=== PATIENT | female | born 1955 | race Two or more races ===

== ENCOUNTER 2025-04-15 22:28 | Inpatient (IN) | payer BC, MEDICARE ==
[~2025-04-15] VITALS: Ht 162.6 cm; Wt 76.7 kg
[~2025-04-15 22:28] MED LIST: CITA10TA8
[2025-04-15 22:29] VITALS: PULSE 70; RESP 25; O2SAT 96
[2025-04-15 22:30] VITALS: PULSE 61; O2SAT 96
--- NOTE | 2025-04-15 22:53 | ED.PDOC ---
SOB-HPI HPI Comments 69-year-old female came to ER via EMS for shortness a breath. Patient has history of hypertension, dyslipidemia and congestive heart failure. Patient has poor compliance to her medications. States she has been short of breath since yesterday that progressively worsened in the past hour. Saturating at 60% at 3 lpm on scene. Patient was placed on CPAP and breathing treatments were given. Chief Complaint: Shortness of Breath Time Seen by MD: 22:52 Primary Care Provider: YELENA Vazquez notes: Nurses Notes Information Source: Patient, Emergency Med Personnel Mode of Arrival: EMS Severity: Moderate Timing: Hours Duration: Since onset Context: With Light Exertion PE Risk Factors: None History of: CHF Prehospital treatment: Breathing Tx, C-Pap, Oxygen Modifying Factors: Exertion Quality: Aching, Tightness Radiation: No Radiation Location: Chest (R), Chest (L) If cough with SOB: Non-Productive Past Medical History PAST MEDICAL HISTORY: CHF, High Lipids, HTN Surgical History: Denies all surgeries ABSTRACT WRITER History: No Pertinent ABSTRACT WRITER History Family History Family History: Reviewed,noncontributory to illness Social History Smoker: Cigarettes Alcohol: Denies ETOH Use Drugs: Denies Drug Use Lives In: Home Constitutional: denies: chills, diaphoresis, fatigue, fever, malaise, sweats, weakness, others EENTM: denies: blurred vision, double vision, ear bleeding, ear discharge, ear drainage, ear pain, ear ringing, eye pain, eye redness, hearing loss, mouth pain, mouth swelling, nasal discharge, nose bleeding, nose congestion, nose pain, photophobia, tearing, throat pain, throat swelling, voice changes, others Respiratory: reports: SOB at rest, shortness of breath, wheezing; denies: cough, hemoptysis, orthopnea, SOB with excertion, stridor, others Cardiovascular: denies: chest pain, dizzy spells, diaphoresis, Dyspnea on exertion, edema, irregular heart beat, left arm pain, lightheadedness, palpitations, PND, syncope, others Gastrointestinal: denies: abdomen distended, abdominal pain, blood streaked bowels, constipated, diarrhea, dysphagia, difficulty swallowing, hematemesis, melena, nausea, poor appetite, poor fluid intake, rectal bleeding, rectal pain, vomiting, others Genitourinary: denies: abnormal vagina bleeding, burning, dyspareunia, dysuria, flank pain, frequency, hematuria, incontinence, pain, , vagina discharge, urgency, others Neurological: denies: dizziness, fainting, headache, left sided numbness, left sided weakness, numbness, paresthesia, pre-existing deficit, right sided numbness, right sided weakness, seizure, speech problems, tingling, tremors, weakness, others Musculoskeletal: denies: back pain, gout, joint pain, joint swelling, muscle pain, muscle stiffness, neck pain, others Integumetry: denies: bruises, change in color, change in hair/nails, dryness, laceration, lesions, lumps, rash, wounds, others Allergic/Immunocompromised: denies: Difficulty Healing, Frequent Infections, Hives, Itching, others Hematologic/Lymphatic: denies: anemia, blood clots, easy bleeding, easy bruising, swollen glands, others Endocrine: denies: excessive hunger, excessive sweating, excessive thirst, excessive urination, flushing, intolerance to cold, intolerance to heat, unexplained weight gain, unexplained weight loss, others Psychiatric: denies: anxiety, bipolar disorder, depression, hopeless, panic disorder, schizophrenia, sleepless, suicidal, others Physical Exam General Appearance: No Apparent Distress, Normal HEENT: Normal ENT Inspection, Pharynx Normal, TMs Normal Neck: Full Range of Motion, Non-Tender, Normal, Normal Inspection Respiratory: Chest Non-Tender, Lungs Clear, No Accessory Muscle Use, No Respiratory Distress, Normal Breath Sounds Cardiovascular: No Edema, No JVD, No Murmur, No Gallop, Normal Peripheral Pulses, Regular Rate/Rhythm Breast Exam: Deferred Gastrointestinal: No Organomegaly, Non Tender, No Pulsatile Mass, Normal Bowel Sounds, Soft Genitalia: Deferred Pelvic: Deferred Rectal: Deferred Extremities: No calf tenderness, Normal capillary refill, Normal inspection, Normal range of motion, Non-tender, No pedal edema Musculoskeletal : Apperance: Normal Neurologic: Alert, laboratory machinist II-XII nml as Tested, No Motor Deficits, Normal Affect, Normal Mood, No Sensory Deficits Cerebellar Function: Normal Reflexes: Normal Skin: Dry, Normal Color, Warm Lymphatic: No Adenopathy Was a procedure done? Was a procedure done?: No Differential Dx Differential Diagnosis: Bronchitis, CHF, COPD, Pneumonia, Respiratory Distress, URI X-Ray, Labs, Meds, VS Vital Signs Date Time Temp Pulse Resp B/P (MAP) Pulse Ox O2 Delivery O2 Flow Rate FiO2 04/16/25 00:41 118/63 04/16/25 00:18 74 103/45 98 Facial BiPAP Mask 45 04/16/25 00:00 98.0 75 25 103/45 (64) 100 98.0 04/16/25 00:00 57 04/15/25 23:15 96.8 61 26 124/82 96 45 96.8 04/15/25 23:00 97.7 62 24 124/79 (94) 100 97.7 04/15/25 22:38 96.8 59 25 120/74 (89) 91 96.8 04/15/25 22:32 62 04/15/25 22:30 61 96 Facial BiPAP Mask 45 04/15/25 22:29 96.8 61 22 124/82 (96) 95 96.8 04/15/25 22:29 70 25 96 Bi-Pap+ 45 45 Lab Test 04/16/25 00:46 04/16/25 00:03 04/15/25 23:49 04/15/25 23:38 Range/Units POC Glucose 136 H 89 31 *L 70-106 mg/dl Blood Gas Specimen Type Arterial Blood Gas Sample Site Left radial Blood Gas Patient Temperature 37.0 Arterial Blood Date Drawn [id number] Arterial Blood pH 7.423 7.350-7.450 Arterial Blood Partial Pressure CO2 22.1 L 32.0-45.0 mmHg Arterial Blood Partial Pressure O2 104.8 83.0-108.0 mmHg Arterial Blood HCO3 14.1 L 21.0-28.0 mmol/L Arterial Blood Oxygen Saturation 97.4 94.0-98.0 % Arterial Blood Base Excess -8.2 L -2.0-3.0 mmol/L Arterial Blood Oxyhemoglobin 96.0 94.0-98.0 % Arterial Blood Carboxyhemoglobin 0.8 0.5-1.5 % Arterial Blood Methemoglobin 0.6 0.0-1.5 % Gianni Test Yes Blood Gas Total Hemoglobin 13.50 12.0-16.0 g/dL Blood Gas Modality Mask - bipap FiO2 % 45.0 Blood Gas EPAP 5 Blood Gas IPAP 12 Test 04/15/25 23:07 Range/Units White Blood Count 6.9 4.4-10.8 10^3/uL Red Blood Count 4.03 4.0-5.20 10^6/uL Hemoglobin 13.4 12.2-16.2 g/dL Hematocrit 41.2 36.0-46.0 % Mean Corpuscular Volume 102.2 H 80.0-100.0 fL Mean Corpuscular Hemoglobin 33.2 H 28.0-32.0 pg Mean Corpuscular Hemoglobin Concent 32.5 32.0-36.0 g/dL Red Cell Distribution Width 19.0 H 11.8-14.3 % Platelet Count 161 140-450 10^3/uL Mean Platelet Volume 9.2 6.9-10.8 fL Neutrophils (%) (Auto) 71.8 37.0-80.0 % Lymphocytes (%) (Auto) 19.4 10.0-50.0 % Monocytes (%) (Auto) 8.1 0.0-12.0 % Eosinophils (%) (Auto) 0.2 0.0-7.0 % Basophils (%) (Auto) 0.5 0.0-2.0 % Neutrophils # (Auto) 5.0 1.6-8.6 10 ^3/uL Lymphocytes # (Auto) 1.4 0.4-5.4 10 ^3/uL Monocytes # (Auto) 0.6 0-1.3 10 ^3/uL Eosinophils # (Auto) 0 0-0.8 10 ^3/uL Basophils # (Auto) 0 0-0.2 10 ^3/uL Nucleated Red Blood Cells 0.7 % Sodium Level 137 136-145 mmol/L Potassium Level 6.3 *H 3.5-5.1 mmol/L Chloride Level 104 98-107 mmol/L Carbon Dioxide Level 12 L 20-31 mmol/L Anion Gap 21 H 5-15 Blood Urea Nitrogen 25 H 9-23 mg/dL Creatinine 1.50 H 0.550-1.02 mg/dL Glomerular Filtration Rate Calc 37 >90 mL/min BUN/Creatinine Ratio 16.7 10.0-20.0 Serum Glucose 44 *L 74-106 mg/dL Calcium Level 10.7 H 8.7-10.4 mg/dL Troponin I High Sensitivity 26 </=34 ng/L B-Type Natriuretic Peptide 1636.26 0-100 pg/mL Current Medications Medications (Trade) Dose Ordered Sig/Fuad Route Start Time Stop Time Status Last Admin Dextrose 50 ml ONCE ONCE IV 04/16/25 00:00 04/16/25 00:01 DC 04/15/25 23:58 Calcium Gluconate/ Sodium Chloride 50 ml @ 100 mls/hr Q30M IV 04/16/25 00:30 04/16/25 01:29 04/16/25 00:40 Dextrose 50 ml ONCE ONCE IV 04/16/25 00:30 04/16/25 00:31 DC 04/16/25 00:41 Insulin Human Regular (InsuLIN R) 5 units ONCE ONCE IV 04/16/25 00:30 04/16/25 00:31 DC 04/16/25 00:47 Sodium Bicarbonate 100 ml ONCE ONCE IV 04/16/25 00:30 04/16/25 00:31 DC 04/16/25 00:43 Furosemide (Lasix Injection) 40 mg ONCE ONCE IV 04/16/25 00:30 04/16/25 00:31 DC 04/16/25 00:41 CHEST RADIOGRAPH Indication: sob Technique: Single frontal view of the chest was obtained COMPARISON: None FINDINGS: Lines and Tubes: None Lungs: Clear Pleura: No effusion. No pneumothorax. Cardiomediastinal contours: Moderate cardiomegaly. IMPRESSION: Moderate cardiomegaly. Time of 1ST Reevaluation: 22:48 Reevaluation 1ST: Unchanged Patient Education/Counseling: Diagnosis, Treatment Family Education/Counseling: No Family Present Departure 1 Departure Time of Disposition: 01:02 (Patient presented with shortness of breath that was concerning for possible STEMI, ACS, PE, Pneumonia, Muscle Strain, COPD, Dissection, Acute on Chronic systolic and Diastolic dysfunction. Data: 1. I ordered and reviewed the result of at least 3 labs including a CBC, BMP, and Troponin. 2. I independently interpreted the following tests: EKG which shows sinus arrhthmia and Chest X-ray which shows cardiomegaly.Risk:This patient has a high risk of morbidity due to further diagnostic testing or treatment and may suffer from an acute cardiac or respiratory disorder but is most consitent with an acute chf exacerbation. Patient should be admitted for further workup and possible expert consultation. ) Impression: Primary Impression: Acute respiratory failure Qualified Codes: J96.01 - Acute respiratory failure with hypoxia Additional Impressions: Acute on chronic heart failure with reduced ejection fraction (HFrEF, <= 40%) and combined systolic and diastolic dysfunction Hyperkalemia Disposition: 09 ADMITTED INPATIENT Admit to: [facility] Condition: Guarded Critical Care Note Critical Care Time?: Yes (35 min-critical care time only) Critical care comment: Shortness a breath Authorized and Performed by: Irish Eng MD Total critical care time: Approximately 42 minutes Due to a high probability of clinically significant, life threatening deterioration, the patient required my highest level of preparedness to intervene emergently and I personally spent this critical care time directly and personally managing the patient. This critical care time included obtaining a history; examining the patient; pulse oximetry; ordering and review of studies; arranging urgent treatment with development of a management plan; evaluation of patient's response to treatment; frequent reassessment; and, discussions with other providers. This critical care time was performed to assess and manage the high probability of imminent, life-threatening deterioration that could result in multi-organ failure. It was exclusive of separately billable procedures and treating other patients and teaching time. Please see my other sections and the rest of the note for further information on patient assessment and treatment. Stability Stability form required: No Heart Score Heart Score: Heart Score Response (Comments) Value History Moderate Suspicious 1 EKG Repolarization Disturb 1 Age >65 2 Risk Factors >3 or Hx ASHD 2 Troponin Normal limit 0 Total 6 I personally scribed for IRISH ENG MD ([email or web address]) on 04/15/25 at 22:53. Electronically submitted by Gonzalo Pineda ([employer]). I personally scribed for IRISH ENG MD ([email or web address]) on 04/16/25 at 00:03. Electronically submitted by Gonzalo Pineda ([employer]). IRISH ENG MD April 15, 2025 22:53
[2025-04-15 23:15] VITALS: BP 124/82; PULSE 61; RESP 26; TEMP 96.8; O2SAT 96
[2025-04-15 23:21] LABS: Basophils # (auto) 0 10 ^3/uL (0-0.2); Eosinophils # (auto) 0 10 ^3/uL (0-0.8); Hemoglobin 13.4 g/dL (12.2-16.2); Monocytes # (auto) 0.6 10 ^3/uL (0-1.3)
[2025-04-15 23:23] LABS: Basophils % (auto) 0.5 % (0.0-2.0); Eosinophils % (auto) 0.2 % (0.0-7.0); Hematocrit 41.2 % (36.0-46.0); Lymphocytes # (auto) 1.4 10 ^3/uL (0.4-5.4); Lymphocytes % (auto) 19.4 % (10.0-50.0); Mean Corpuscular Hemoglobin 33.2 pg (28.0-32.0); Mean Corpuscular Hgb Conc. 32.5 g/dL (32.0-36.0); Mean Corpuscular Volume 102.2 fL (80.0-100.0); Monocytes % (auto) 8.1 % (0.0-12.0); Neutrophils % (auto) 71.8 % (37.0-80.0); Nucleated Red Blood Cells % 0.7 %; Platelet Count (auto) 161 10^3/uL (140-450); Red Blood Cells 4.03 10^6/uL (4.0-5.20); White Blood Cell 6.9 10^3/uL (4.4-10.8)
--- NOTE | 2025-04-15 23:23 | DVH ---
CHEST RADIOGRAPH Indication: sob Technique: Single frontal view of the chest was obtained COMPARISON: None FINDINGS: Lines and Tubes: None Lungs: Clear Pleura: No effusion. No pneumothorax. Cardiomediastinal contours: Moderate cardiomegaly. IMPRESSION: Moderate cardiomegaly.
[2025-04-15 23:33] LABS: Chloride 104 mmol/L (98-107)
[2025-04-15 23:34] LABS: Anion Gap 21 (5-15); Sodium 137 mmol/L (136-145)
[2025-04-15 23:40] LABS: BUN/Creatinine Ratio 16.7 (10.0-20.0); Blood Urea Nitrogen 25 mg/dL (9-23); Calcium 10.7 mg/dL (8.7-10.4); Carbon Dioxide 12 mmol/L (20-31)
[2025-04-15 23:46] LABS: Base Excess -8.2 mmol/L (-2.0-3.0)
[2025-04-15 23:46] LABS: Glucose 44 mg/dL (74-106); Potassium 6.3 mmol/L (3.5-5.1)
[2025-04-15] MEDS: DEXTROSE (50%) 50ML SYRG IV ONE (23:58)
[2025-04-15] MEDS: DEXTROSE 50% SYRINGE 50 ML IV ONE (23:58)
[2025-04-16] VITALS (10 sets, daily range): BP systolic 94–119; BP diastolic 45–66; PULSE 62–86; RESP 17–20; TEMP 97.6–97.7; O2SAT 96–99
[2025-04-16] MEDS: CALCIUM GLUC 1,000mg/50ml-NS 50 ML IV SCH (00:40)
[2025-04-16] MEDS: FUROSEMIDE 40 MG/4 ML VIAL IV ONE (00:41)
[2025-04-16] MEDS: DEXTROSE (50%) 50ML SYRG IV ONE (00:41)
[2025-04-16] MEDS: SODIUM BICARB 8.4% 50Meq/50ml SYR Vial IV ONE (00:43)
[2025-04-16] MEDS: InsuLIN REG 1unit/0.01ml Soln (100units/ml) IV ONE (00:47)
[2025-04-16] MEDS ORDERED: ACETAMINOPHEN 325 MG TAB PO PRN (01:30)
[2025-04-16] MEDS ORDERED: DEXTROSE (50%) 50ML SYRG IV PRN (01:30)
[2025-04-16] MEDS ORDERED: ONDANSETRON HCL 4 MG/2 ML VIAL IV PRN (01:30)
--- NOTE | 2025-04-16 01:52 | DVHHP2 ---
History of Present Illness Reason for Visit: Acute respiratory failure with hypoxia History of Present Illness The patient is a 69-year-old female with past medical history of hyperlipidemia, hypertension, and CHF who presented to [facility] ED with complaint of shortness of breaths. Patient reports she has been experiencing increased shortness of breaths, increased work of breathing, desaturating at 60%, getting worse that prompted this visit. Patient was seen and evaluated in the ED, laboratory data shows WBC 6.9, platelets 161, sodium 137, potassium 6.3, BUN 25, creatinine 1.50, glucose 44, anion gap 21, calcium 10.7, troponin 26, BNP 1636.26 blood pressure 118/63, heart rate 74, temperature 98.0 F, O2 saturation 98% on BiPAP. Chest x-ray revealing mild cardiomegaly. Patient was started on IV Lasix, given hyperkalemia protocol, please see medication orders section in the computer. On my assessment, patient denies chest pain, no headache, no dizziness, no diaphoresis, currently on BiPAP, no nausea, no vomiting, no fever, no chills. Patient was admitted for further evaluation and medical management. Past Medical History CHF, High Lipids, HTN Past Surgical History Denies all surgeries Family History Reviewed, noncontributory to the management of this case. Past Social History The patient lives at home, smokes cigarettes, denies alcohol or illicit drugs abuse. Review of Systems Constitutional: Yes: Weakness; No: Fever, Chills, Sweats, Malaise, Other Eyes: No: Pain, Vision change, Conjunctivae inflammation, Eyelid inflammation, Other, Redness ENT: No: Ear pain, Ear discharge, Nose pain, Nose discharge, Nose congestion, Mouth pain, Mouth swelling, Throat pain, Throat swelling, Other Respiratory: Shortness of breath, Wheezing, Other (SOB at rest); No: Cough, Dry, SOB with excertion, Hemoptysis, Pleuritic Pain, Sputum, Wheezing Cardiovascular: No: Chest Pain, Palpitations, Orthopnea, Paroxysmal Noc. Dyspnea, Edema, Lt Headedness, Other Gastrointestinal: No: Nausea, Vomiting, Abdominal Pain, Diarrhea, Constipation, Melena, Hematochezia, Other Genitourinary: No Dysuria, No Frequency, No Incontinence, No Hematuria, No Retention, No Other Musculoskeletal: No: other, neck pain, shoulder pain, arm pain, back pain, hand pain, leg pain, foot pain Skin: No: Rash, Lesions, Jaundice, Bruising, Other Neurological: No: Weakness, Numbness, Incoordination, Change in speech, Confusion, Seizures, Other Allergies: Coded Allergies: NO KNOWN ALLERGIES (Unverified , 11/16/10) Medications Current Medications Medications Dose Ordered Sig/Fuad Route Start Time Stop Time Status Last Admin Dose Admin Furosemide 40 mg DAILY IV 04/16/25 10:00 Carvedilol 3.125 mg Q12HR PO 04/16/25 10:00 Aspirin 81 mg DAILY PO 04/16/25 10:00 Diagnostic Test (Pha) 1 strip IQ4HR 04/16/25 04:00 Insulin Human Regular IQ4HR SC 04/16/25 04:00 Dextrose 50 ml UD PRN IV 04/16/25 01:30 Sodium Chloride 10 ml Q8HR IV 04/16/25 06:00 Acetaminophen/ Hydrocodone Bitart 1 tab Q4HP PRN PO 04/16/25 01:30 Ondansetron HCl 4 mg Q4HP PRN IV 04/16/25 01:30 Docusate Sodium 100 mg BIDPRN PRN PO 04/16/25 01:30 Acetaminophen 650 mg Q6HP PRN PO 04/16/25 01:30 Exam Vital Signs Vital Signs Date Time Temp Pulse Resp B/P (MAP) Pulse Ox O2 Delivery O2 Flow Rate FiO2 04/16/25 00:41 118/63 04/16/25 00:18 74 98 Facial BiPAP Mask 45 04/16/25 00:00 98.0 25 98.0 General Appearance: Alert, Oriented X3, Cooperative, No acute distress HEENT: Atraumatic, PERRLA, EOMI, Mucous membr. moist/pink Respiratory: Other (On BiPAP) Cardiovascular: Regular rate, Normal S1, Normal S2, No murmurs Abdominal: Normal bowel sounds, Soft, No tenderness, No hepatospenomegaly, No masses Extremities: No clubbing, No cyanosis, No edema, Normal pulses, No tenderness/swelling Skin: No rashes, No breakdown, No significant lesion Neuro: Normal speech, Normal tone, Sensation intact, Cranial nerves 3-12 NL, Reflexes 2+, Other (Generalized weakness) Psych/Mental Status: Mental status NL, Mood NL Labs/Xrays Labs Test 04/16/25 00:46 04/15/25 23:38 04/15/25 23:07 Range/Units POC Glucose 136 H 70-106 mg/dl Blood Gas Specimen Type Arterial Blood Gas Sample Site Left radial Blood Gas Patient Temperature 37.0 Arterial Blood Date Drawn [id number] Arterial Blood pH 7.423 7.350-7.450 Arterial Blood Partial Pressure CO2 22.1 L 32.0-45.0 mmHg Arterial Blood Partial Pressure O2 104.8 83.0-108.0 mmHg Arterial Blood HCO3 14.1 L 21.0-28.0 mmol/L Arterial Blood Oxygen Saturation 97.4 94.0-98.0 % Arterial Blood Base Excess -8.2 L -2.0-3.0 mmol/L Arterial Blood Oxyhemoglobin 96.0 94.0-98.0 % Arterial Blood Carboxyhemoglobin 0.8 0.5-1.5 % Arterial Blood Methemoglobin 0.6 0.0-1.5 % Gianni Test Yes Blood Gas Total Hemoglobin 13.50 12.0-16.0 g/dL Blood Gas Modality Mask - bipap FiO2 % 45.0 Blood Gas EPAP 5 Blood Gas IPAP 12 White Blood Count 6.9 4.4-10.8 10^3/uL Red Blood Count 4.03 4.0-5.20 10^6/uL Hemoglobin 13.4 12.2-16.2 g/dL Hematocrit 41.2 36.0-46.0 % Mean Corpuscular Volume 102.2 H 80.0-100.0 fL Mean Corpuscular Hemoglobin 33.2 H 28.0-32.0 pg Mean Corpuscular Hemoglobin Concent 32.5 32.0-36.0 g/dL Red Cell Distribution Width 19.0 H 11.8-14.3 % Platelet Count 161 140-450 10^3/uL Mean Platelet Volume 9.2 6.9-10.8 fL Neutrophils (%) (Auto) 71.8 37.0-80.0 % Lymphocytes (%) (Auto) 19.4 10.0-50.0 % Monocytes (%) (Auto) 8.1 0.0-12.0 % Eosinophils (%) (Auto) 0.2 0.0-7.0 % Basophils (%) (Auto) 0.5 0.0-2.0 % Neutrophils # (Auto) 5.0 1.6-8.6 10 ^3/uL Lymphocytes # (Auto) 1.4 0.4-5.4 10 ^3/uL Monocytes # (Auto) 0.6 0-1.3 10 ^3/uL Eosinophils # (Auto) 0 0-0.8 10 ^3/uL Basophils # (Auto) 0 0-0.2 10 ^3/uL Nucleated Red Blood Cells 0.7 % Sodium Level 137 136-145 mmol/L Potassium Level 6.3 *H 3.5-5.1 mmol/L Chloride Level 104 98-107 mmol/L Carbon Dioxide Level 12 L 20-31 mmol/L Anion Gap 21 H 5-15 Blood Urea Nitrogen 25 H 9-23 mg/dL Creatinine 1.50 H 0.550-1.02 mg/dL Glomerular Filtration Rate Calc 37 >90 mL/min BUN/Creatinine Ratio 16.7 10.0-20.0 Serum Glucose 44 *L 74-106 mg/dL Calcium Level 10.7 H 8.7-10.4 mg/dL Troponin I High Sensitivity 26 </=34 ng/L B-Type Natriuretic Peptide 1636.26 0-100 pg/mL PATIENT: NEELAM GARCIA ACCT: [id number] UNIT: [id number] : 1955 LOC: ER ROOM / BED: / AGE / SEX: 69 / F ADM STATUS: REG ER SERVICE 2248 ORDERING PHYSICIAN: IRISH ENG MD PROCEDURE(s): CXRP - CHEST PORTABLE REASON: sob ORDER NUMBER(s): [id number], ACCESSION NUMBER(s): [id number] CHEST RADIOGRAPH Indication: sob Technique: Single frontal view of the chest was obtained COMPARISON: None FINDINGS: Lines and Tubes: None Lungs: Clear Pleura: No effusion. No pneumothorax. Cardiomediastinal contours: Moderate cardiomegaly. IMPRESSION: Moderate cardiomegaly. Assessment/Plan Assessment/Plan Acute respiratory failure Acute respiratory failure with hypoxia Hyperkalemia Acute on chronic heart failure with reduced ejection fraction (HFrEF, <= 40%) and combined systolic and diastolic dysfunction Plan 1. Admit to telemetry unit 2. Breathing treatment 3. Pain control management 4. Management of fluids and electrolytes 5. Consultation for Cardiology 6. Diagnostic tests chest x-ray 7. DVT prophylaxis-on aspirin 8. Repeat labs CBC, CMP in a.m. 9. Continue with current medical management 10. Treatment plan discussed with patient and RN. Patient verbalized understanding. Plan discussed with: Patient, Other (RN) My Orders Orders - MAAME DARBY DNP Procedure Category Date Status Time Complete Blood Count LAB 04/16/25 Logged 04:00 Comprehensive LAB 04/16/25 Logged Metabolic Panel 04:00 Furosemide Injection PHA 04/16/25 In Process (Lasix Injection) 10:00 Carvedilol Tablet PHA 04/16/25 In Process (Coreg Tablet) 10:00 Aspirin Tablet PHA 04/16/25 In Process 10:00 Glucose Blood PHA 04/16/25 In Process (Accu-Chek Comfort 04:00 Insulin R (Human) PHA 04/16/25 In Process (Insulin R) 04:00 Dextrose 50% Syringe PHA 04/16/25 In Process 01:30 Allergies SERVANDO 04/16/25 In Process 01:17 Code Status CODE 04/16/25 Transmitted 01:17 Sodium Chloride Lock PHA 04/16/25 In Process (Saline Lock Ns) 06:00 Oxygen Per Hour RT 04/16/25 Transmitted 01:17 Hydrocodone-Acet PHA 04/16/25 In Process 5325mg Tab ([place] 01:30 Ondansetron Hcl PHA 04/16/25 In Process (Zofran) 01:30 Docusate Sodium PHA 04/16/25 In Process Capsule (Colace 01:30 Fall Risk Precautions SERVANDO 04/16/[address] 01:17 Complete Blood Count LAB 04/17/25 Verified 04:00 Comprehensive LAB 04/17/25 Verified Metabolic Panel 04:00 Condition: Serious SERVANDO 04/16/25 In Process 01:17 Acetaminophen Tablet PHA 04/16/25 In Process (Tylenol Tablet) 01:30 Maintain Bed Rest SERVANDO 04/16/25 In Process 01:17 Sequential SERVANDO 04/16/25 In Process Compression Device Consistent DIET 04/16/25 Transmitted Carb(Ccho)Diabetes Breakfast * Cardiology Consult CONS 04/16/25 Transmitted 01:17 Echo 2d Mode Cardiac US 04/16/25 Logged DOP 01:32 Admit ADMIT 04/16/25 Transmitted 01:50 Nitroglycerin PHA 04/16/25 Transmitted Sublingual (Ntrostat 02:00 Morphine Sulfate PHA 04/16/25 Transmitted Injection 02:00 Stat Ekg For Chest [facility] 04/16/25 Transmitted Pain 01:50 Notify Md Of Changes [facility] 04/16/25 Transmitted From Base 01:50 Regional Clinical Director For [facility] 04/16/25 Transmitted 24 Hours 01:50 Emergency Dysrhythmia [facility] 04/16/25 Transmitted Protocol 01:50 Rhythm Strips Once [facility] 04/16/25 Transmitted Every Shift 01:50 Oxygen By Nasal RT 04/16/25 Transmitted Cannula 01:50 Problem List: (1) Acute respiratory failure with hypoxia (2) Hyperkalemia (3) Acute respiratory failure (4) Acute on chronic heart failure with reduced ejection fraction (HFrEF, <= 40%) and combined systolic and diastolic dysfunction Date of Service: April 16, 2025 Billing Provider: MAAME DARBY DNP Common Visit Codes: 72625-[id number] INP/OBS CARE (HIGH) MAAME DARBY DNP April 16, 2025 01:51
[2025-04-16] MEDS ORDERED: MORPHINE SULFATE INJ 2 MG/ml SYRG IV PRN (02:00)
[2025-04-16] MEDS ORDERED: NITROGLYCERIN 0.4 MG SL TAB SL PRN (02:00)
[2025-04-16 02:20] LABS: Urine Bacteria None Seen /hpf (None Seen)
[2025-04-16 02:33] LABS: Urine Amorphous Crystal FEW /hpf (None Seen); Urine Blood Negative /uL (Negative); Urine Clarity Clear (Clear); Urine Color Light-Yellow (Yellow); Urine Hyaline Cast FEW /lpf (0 - 2); Urine Protein, UAD Negative (Negative); Urine Specific Gravity 1.007 (1.001-1.035); Urine Squamous Epithelial Cell FEW /hpf (<5); Urine Urobilinogen Normal (Negative); Urine WBC 1 /HPF (0-5)
[2025-04-16 02:42] LABS: Chloride 104 mmol/L (98-107); Potassium 5.1 mmol/L (3.5-5.1); Sodium 139 mmol/L (136-145)
[2025-04-16 02:43] LABS: Anion Gap 18 (5-15); Calcium 10.1 mg/dL (8.7-10.4)
[2025-04-16 02:44] LABS: Carbon Dioxide 17 mmol/L (20-31)
[2025-04-16 02:48] LABS: BUN/Creatinine Ratio 18.1 (10.0-20.0)
[2025-04-16 02:49] LABS: Blood Urea Nitrogen 28 mg/dL (9-23); Glucose 158 mg/dL (74-106)
[2025-04-16 02:50] LABS: Phosphorus 4.9 mg/dL (2.4-5.1)
[2025-04-16] MEDS: ACCU-CHEK COMFORT CURVE STRIP VI SCH (04:00)
[2025-04-16] MEDS: InsuLIN REG 1unit/0.01ml Soln (100units/ml) SC SCH (04:00)
--- NOTE | 2025-04-16 05:48 | ECG ---
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 Electronically Signed On 04-18-2025 22:15:46 PDT by Curt Molina Please click the below link to view image of tracing.
[2025-04-16] MEDS: SODIUM CHLOR 0.9% PF (SALINE LOCK) 10ML VIAL/SYR IV SCH (05:58)
[2025-04-16 07:00] LABS: Basophils # (auto) 0 10 ^3/uL (0-0.2); Basophils % (auto) 0.5 % (0.0-2.0); Eosinophils # (auto) 0 10 ^3/uL (0-0.8); Eosinophils % (auto) 0.1 % (0.0-7.0); Hematocrit 35.6 % (36.0-46.0); Hemoglobin 11.9 g/dL (12.2-16.2); Lymphocytes # (auto) 1.1 10 ^3/uL (0.4-5.4); Lymphocytes % (auto) 16.4 % (10.0-50.0); Mean Corpuscular Hemoglobin 33.3 pg (28.0-32.0); Mean Corpuscular Hgb Conc. 33.3 g/dL (32.0-36.0); Mean Corpuscular Volume 100.2 fL (80.0-100.0); Monocytes # (auto) 0.5 10 ^3/uL (0-1.3); Monocytes % (auto) 8.1 % (0.0-12.0); Neutrophils # (auto) 4.9 10 ^3/uL (1.6-8.6); Neutrophils % (auto) 74.9 % (37.0-80.0); Nucleated Red Blood Cells % 0.4 %; Platelet Count (auto) 141 10^3/uL (140-450); Red Blood Cells 3.56 10^6/uL (4.0-5.20); Red Cell Distribution Width 17.9 % (11.8-14.3); White Blood Cell 6.5 10^3/uL (4.4-10.8)
[2025-04-16 07:03] LABS: Anion Gap 12 (5-15); BUN/Creatinine Ratio 16.1 (10.0-20.0); Potassium 4.7 mmol/L (3.5-5.1); Sodium 139 mmol/L (136-145); Total Protein 6.4 g/dL (5.7-8.2)
[2025-04-16 07:05] LABS: Alanine Aminotransferase 968 U/L (7-40); Alkaline Phosphatase 120 U/L (46-116); Bilirubin, Total 3.1 mg/dL (0.2-1.0); Blood Urea Nitrogen 25 mg/dL (9-23); Carbon Dioxide 19 mmol/L (20-31); Chloride 108 mmol/L (98-107); Glucose 123 mg/dL (74-106)
[2025-04-16 07:22] LABS: Aspartate Aminotransferase 2286 U/L (13-40)
--- NOTE | 2025-04-16 10:02 | DVHINCON2 ---
[facility]AM[facility] LOCKWOOD [facility] 04/16/25 1002: Date Seen: April 16, 2025 Referring Physician SHADI Fuentes Reason for Consultation CHF exacerbation History of Present Illness This is a 69-year-old female patient who presents to the emergency room with chief complaint of worsening shortness of breath for two days prior to emergency room arrival. Cardiology has been consulted at this time for CHF exacerbation. Initial twelve electrocardiogram reveals normal sinus rhythm with diffuse nonspecific ST segment depression and S1Q3T3 pattern. Initial troponin level of 26ng/L with significant up-trend and current peak level of 661ng/L. The patient denies any chest pain. Initial BNP level of 1636.26pg/mL. Significant past medical history includes congestive heart failure, hypertension, dyslipidemia, COPD, obesity, and tobacco use. The patient reports that she recently moved to this area from [place] approximately three weeks ago. 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 The patient admits to medication noncompliance, stating that she has not taken her heart failure medications including Lasix for the last couple of days. Of note, the patient's toxicology is positive for amphetamine use for which the patient adamantly denies. Past Medical History Past medical history reviewed. No other significant than mentioned above. Past Surgical History Tonsillectomy Family History Family history reviewed. Social History Patient has a five pack-year history, states she now smokes approximately one cigarette per week Denies any illicit drug use Denies any alcohol use Allergies: Coded Allergies: NO KNOWN ALLERGIES (Unverified , 11/16/10) Home Meds Discontinued Reported Medications Citalopram Hydrobromide (Celexa) 10 Mg Tab 11/16/10 Home Meds Home medications reviewed. Current Medications Current Medications Medications (Trade) Dose Ordered Sig/Fuad Route PRN Reason Start Time Stop Time Status Last Admin Calcium Gluconate/ Sodium Chloride 50 ml @ 100 mls/hr Q30M IV 04/16/25 00:30 04/16/25 01:29 DC 04/16/25 01:07 Furosemide (Lasix Injection) 40 mg DAILY IV 04/16/25 10:00 Carvedilol (Coreg Tablet) 3.125 mg Q12HR PO 04/16/25 10:00 Aspirin 81 mg DAILY PO 04/16/25 10:00 Diagnostic Test (Pha) (Accu-Chek Comfort Curve T) 1 strip IQ4HR 04/16/25 04:00 04/16/25 08:53 Insulin Human Regular (InsuLIN R) IQ4HR SC 04/16/25 04:00 Dextrose 50 ml UD PRN IV Blood Sugar LESS THAN 60 04/16/25 01:30 Sodium Chloride (Saline Lock Ns) 10 ml Q8HR IV 04/16/25 06:00 04/16/25 05:58 Acetaminophen/ Hydrocodone Bitart ([place] 5/325MG Tab) 1 tab Q4HP PRN PO MODERATE PAIN (4-6 PAIN SCALE) 04/16/25 01:30 Ondansetron HCl (Zofran) 4 mg Q4HP PRN IV NAUSEA / VOMITING 04/16/25 01:30 Docusate Sodium (Colace Capsule) 100 mg BIDPRN PRN PO FOR CONSTIPATION 04/16/25 01:30 Acetaminophen (Tylenol Tablet) 650 mg Q6HP PRN PO PAIN SCALE 1-3 OR TEMP>100.4 04/16/25 01:30 Nitroglycerin (Ntrostat Sublingual) 0.4 mg Q5MINP PRN SL FOR CHEST PAIN 04/16/25 02:00 Morphine Sulfate 2 mg Q30M PRN IV FOR CHEST PAIN 04/16/25 02:00 Atorvastatin Calcium (Lipitor) 40 mg HS PO 04/16/25 22:00 UNV Review of Systems Constitutional: No symptom reported Ears, Nose, & Throat: No symptom reported Eyes: No symptom reported Neurological: No symptoms reported Pulmonary/Respiratory: Shortness of breath Cardiovascular: No symptom reported Gastrointestinal: No symptom reported Genitourinary: No symptom reported Musculoskeletal: No symptom reported Skin: No symptom reported Psychiatric: No symptom reported Endocrine: No symptom reported Hematologic/Lymphatic: No symptom reported Vital Signs Vital Signs Date Time Temp Pulse Resp B/P (MAP) Pulse Ox O2 Delivery O2 Flow Rate FiO2 04/16/25 08:00 63 17 99 Nasal Cannula* 4 36 04/16/25 08:00 98.4 128/73 (91) 98.4 Physical Exam General Appearance: Cooperative. Morbidly obese Pulmonary/Respiratory: Clear, bilateral breaths sounds. Cardiovascular/Chest: Regular rate and rhythm. Peripheral Pulses: 2+ Radial (R). 2+ Radial (L). 2+ Pedal (R). 2+ Pedal (L) Abdominal Exam: Normal bowel sounds. Ankle Exam: Nonpitting bilateral ankle edema Lower extremities: Nonpitting bilateral lower extremity edema, right leg greater than left Neuro/Mental Status: A/OX4, coherent. Thoughts/Psych: Normal thought pattern. Appropriate mood and affect. Good judgment and insight. Appearance: No acute distress. Skin Exam: Normal inspection. Normal color. Warm and dry. Labs/Diagnostic Data Labs Test 04/16/25 08:30 04/16/25 06:11 04/16/25 04:25 04/16/25 01:45 Range/Units Troponin I High Sensitivity 661 *H </=34 ng/L White Blood Count 6.5 4.4-10.8 10^3/uL Red Blood Count 3.56 L 4.0-5.20 10^6/uL Hemoglobin 11.9 L 12.2-16.2 g/dL Hematocrit 35.6 #L 36.0-46.0 % Mean Corpuscular Volume 100.2 H 80.0-100.0 fL Mean Corpuscular Hemoglobin 33.3 H 28.0-32.0 pg Mean Corpuscular Hemoglobin Concent 33.3 32.0-36.0 g/dL Red Cell Distribution Width 17.9 H 11.8-14.3 % Platelet Count 141 140-450 10^3/uL Mean Platelet Volume 9.6 6.9-10.8 fL Neutrophils (%) (Auto) 74.9 37.0-80.0 % Lymphocytes (%) (Auto) 16.4 10.0-50.0 % Monocytes (%) (Auto) 8.1 0.0-12.0 % Eosinophils (%) (Auto) 0.1 0.0-7.0 % Basophils (%) (Auto) 0.5 0.0-2.0 % Neutrophils # (Auto) 4.9 1.6-8.6 10 ^3/uL Lymphocytes # (Auto) 1.1 0.4-5.4 10 ^3/uL Monocytes # (Auto) 0.5 0-1.3 10 ^3/uL Eosinophils # (Auto) 0 0-0.8 10 ^3/uL Basophils # (Auto) 0 0-0.2 10 ^3/uL Nucleated Red Blood Cells 0.4 % Sodium Level 139 136-145 mmol/L Potassium Level 4.7 3.5-5.1 mmol/L Chloride Level 108 H 98-107 mmol/L Carbon Dioxide Level 19 L 20-31 mmol/L Anion Gap 12 5-15 Blood Urea Nitrogen 25 H 9-23 mg/dL Creatinine 1.55 H 0.550-1.02 mg/dL Glomerular Filtration Rate Calc 36 >90 mL/min BUN/Creatinine Ratio 16.1 10.0-20.0 Serum Glucose 123 H 74-106 mg/dL Calcium Level 11.0 H 8.7-10.4 mg/dL Total Bilirubin 3.1 H 0.2-1.0 mg/dL Aspartate Amino Transferase (AST) 2286 H 13-40 U/L Alanine Aminotransferase (ALT) 968 H 7-40 U/L Alkaline Phosphatase 120 H 46-116 U/L Total Protein 6.4 5.7-8.2 g/dL Albumin 4.0 3.2-4.8 g/dL POC Glucose 84 70-106 mg/dl Urine Color Light-yellow Yellow Urine Clarity Clear Clear Urine pH 6.0 5.0-9.0 Urine Specific [place] 1.007 1.001-1.035 Urine Protein Negative Negative Urine Ketones Negative Negative Urine Blood Negative Negative /uL Urine Nitrite Negative Negative Urine Bilirubin Negative Negative Urine Urobilinogen Normal Negative mg/dL Urine Leukocyte Esterase Negative Negative /uL Urine RBC None seen 0 - 4 /hpf Urine Microscopic WBC 1 0-5 /HPF Urine Squamous Epithelial Cells Few <5 /hpf Urine Amorphous Crystals Few None Seen /hpf Urine Bacteria None seen None Seen /hpf Urine Hyaline Casts Few 0 - 2 /lpf Urine Glucose Normal Normal mg/dL Test 04/16/25 01:39 04/15/25 23:38 04/15/25 23:07 Range/Units Phosphorus Level 4.9 2.4-5.1 mg/dL Magnesium Level 2.0 1.6-2.6 mg/dL Blood Gas Specimen Type Arterial Blood Gas Sample Site Left radial Blood Gas Patient Temperature 37.0 Arterial Blood Date Drawn [id number] Arterial Blood pH 7.423 7.350-7.450 Arterial Blood Partial Pressure CO2 22.1 L 32.0-45.0 mmHg Arterial Blood Partial Pressure O2 104.8 83.0-108.0 mmHg Arterial Blood HCO3 14.1 L 21.0-28.0 mmol/L Arterial Blood Oxygen Saturation 97.4 94.0-98.0 % Arterial Blood Base Excess -8.2 L -2.0-3.0 mmol/L Arterial Blood Oxyhemoglobin 96.0 94.0-98.0 % Arterial Blood Carboxyhemoglobin 0.8 0.5-1.5 % Arterial Blood Methemoglobin 0.6 0.0-1.5 % Gianni Test Yes Blood Gas Total Hemoglobin 13.50 12.0-16.0 g/dL Blood Gas Modality Mask - bipap FiO2 % 45.0 Blood Gas EPAP 5 Blood Gas IPAP 12 B-Type Natriuretic Peptide 1636.26 0-100 pg/mL Assessment NSTEMI Rule out structural heart disease Rule out pulmonary embolism Acute hypoxic respiratory failure COPD Hypertension Dyslipidemia Transaminitis Hyperkalemia, resolved Acute kidney injury Morbidly obese Medication noncompliance Tobacco use Amphetamine use Plan/Recommendation We will continue with the following plan/recommendations (Dr. Nicole): * Transthoracic echocardiogram to evaluate cardiac function * Strict intake and output, daily weights, maintain fluid restriction * Diuresis as tolerated * Initiate therapeutic Lovenox (pending VQ scan to rule out PE) * Close Cardiac surveillance Patient seen and examined at bedside with . Thank you for allowing us to care for this patient. Please call with any questions or concerns. Critical care time spent: 44 minutes This medical document was created using an electronic medical record system with voice recognition software and computerized dictation system. Although this document has been carefully reviewed, there might still be some phonetic and typographical errors. Occasional wrong-word or ``sound-alike substitutions may have occurred due to the inherent limitations of voice recognition software. These areas are purely typographical due to imperfections of the software programs and do not reflect any compromise in the patient's medical care. Please read the chart carefully and recognize, using context, where these substitutions have occurred. Plan discussed with: Patient NYHA Physical activity limitations: NA Date of Service: April 16, 2025 Billing Provider: LAMONT LOCKWOOD Cardiology Common Codes: [id number] INP/OBS CARE (High) Cardiology Consultation Codes: [id number] CONSULT <45MIN ASHTYN NICOLE MD 04/16/25 0206: Allergies: Coded Allergies: NO KNOWN ALLERGIES (Unverified , 11/16/10) Home Meds Discontinued Reported Medications Citalopram Hydrobromide (Celexa) 10 Mg Tab 11/16/10 Plan/Recommendation pt is very ill, drug addict pt seen with CV team +meth, tobacc severe pulm htn VQ scan pending would treat with lovenox or heparin for nstemi poor CKD diuretics Plan discussed with: Patient LOCKWOODLAMONT ROSS ИРИНА April 16, 2025 10:02 ASHTYN NICOLE MD April 16, 2025 18:46
[2025-04-16 10:32] LABS: Triglycerides 70 mg/dL (< 150)
[2025-04-16 10:33] LABS: LDL Cholesterol 36 mg/dL (< 100)
[2025-04-16 10:34] LABS: Cholesterol 111 mg/dL (< 200); HDL Cholesterol 53 mg/dL (40-59)
[2025-04-16] MEDS: CARVEDILOL 3.125 MG TAB PO SCH (10:57)
[2025-04-16] MEDS: ASPirin 81 mg TAB PO SCH (10:57)
[2025-04-16] MEDS: FUROSEMIDE 40 MG/4 ML VIAL IV SCH ×2 (10:58→17:41)
[2025-04-16] MEDS: HYDROcodone-ACET 5/325MG TAB PO PRN (11:56)
[2025-04-16 13:26] LABS: Amphetamine Screen, Urine Pos (NEGATIVE); Barbiturate Scree,Urine Neg (NEGATIVE); Benzodiazephine Screen, Urine Neg (NEGATIVE); Cannabinoid Screen, Urine Neg (NEGATIVE); Cocaine Screen, Urine Neg (NEGATIVE); Opiate Scree,Urine Neg (NEGATIVE); Phencyclidine Screen, Urine Neg (NEGATIVE)
--- NOTE | 2025-04-16 14:51 | DVHPN2 ---
Reviewed: Care Plan, H&P, Labs, Medications, Previous Orders, Radiology Changes from previous H/P or p: No Changes Eyes: No Pain, No Vision change, No Conjunctivae inflammation, No Eyelid inflammation, No Other, No Redness ENT: No Ear pain, No Ear discharge, No Nose pain, No Nose discharge, No Nose congestion, No Mouth pain, No Mouth swelling, No Throat pain, No Throat swelling, No Other Cardiovascular: No Chest Pain, No Palpitations, No Orthopnea, No Paroxysmal Noc. Dyspnea, No Edema, No Lt Headedness, No Other Respiratory: No Cough, No Dry; Shortness of breath; No SOB with excertion; W heezing; No Hemoptysis, No Pleuritic Pain, No Sputum; Other (SOB at rest) Gastrointestinal: No Nausea, No Vomiting, No Abdominal Pain, No Diarrhea, No Constipation, No Melena, No Hematochezia, No Other Genitourinary: No Dysuria, No Frequency, No Incontinence, No Hematuria, No Retention, No Other Musculoskeletal: No other, No neck pain, No shoulder pain, No arm pain, No back pain, No hand pain, No leg pain, No foot pain Skin: No Rash, No Lesions, No Jaundice, No Bruising, No Other Objective Vitals Vital Signs Date Time Temp Pulse Resp B/P (MAP) Pulse Ox O2 Delivery O2 Flow Rate FiO2 04/16/25 11:57 71 100/54 04/16/25 10:00 18 94 04/16/25 08:00 Nasal Cannula* 4 36 04/16/25 08:00 98.4 98.4 Intake/Output Intake and Output 04/16/25 07:00 Intake Total 50 ml Balance 50 ml Intake IV Total 50 ml Medications Current Medications Medications Dose Ordered Sig/Fuad Route Start Time Stop Time Status Last Admin Dose Admin Carvedilol 3.125 mg Q12HR PO 04/16/25 10:00 04/16/25 10:57 3.125 MG Aspirin 81 mg DAILY PO 04/16/25 10:00 04/16/25 10:57 81 MG Diagnostic Test (Pha) 1 strip IQ4HR 04/16/25 04:00 04/16/25 12:22 1 STRIP Insulin Human Regular IQ4HR SC 04/16/25 04:00 Dextrose 50 ml UD PRN IV 04/16/25 01:30 Sodium Chloride 10 ml Q8HR IV 04/16/25 06:00 04/16/25 13:44 10 ML Acetaminophen/ Hydrocodone Bitart 1 tab Q4HP PRN PO 04/16/25 01:30 04/16/25 11:56 1 TAB Ondansetron HCl 4 mg Q4HP PRN IV 04/16/25 01:30 Docusate Sodium 100 mg BIDPRN PRN PO 04/16/25 01:30 Acetaminophen 650 mg Q6HP PRN PO 04/16/25 01:30 Nitroglycerin 0.4 mg Q5MINP PRN SL 04/16/25 02:00 Morphine Sulfate 2 mg Q30M PRN IV 04/16/25 02:00 Atorvastatin Calcium 40 mg HS PO 04/16/25 22:00 UNV Furosemide 40 mg BID IV 04/16/25 22:00 UNV Laboratory Results Laboratory Tests 04/16/25 06:11 Chemistry Test 04/15/25 23:07 04/16/25 01:39 04/16/25 06:11 Calcium Level 10.7 mg/dL (8.7-10.4) H 10.1 mg/dL (8.7-10.4) 11.0 mg/dL (8.7-10.4) H Magnesium Level 2.0 mg/dL (1.6-2.6) Phosphorus Level 4.9 mg/dL (2.4-5.1) Albumin 4.0 g/dL (3.2-4.8) Total Protein 6.4 g/dL (5.7-8.2) Coagulation Test 04/16/25 06:11 D-Dimer, Quantitative 8.95 mg/L FEU (0.0-0.49) H Lipid panel Test 04/16/25 06:11 Cholesterol Level 111 mg/dL (< 200) HDL Cholesterol 53 mg/dL (40-59) Triglycerides Level 70 mg/dL (< 150) Cardiac Markers Test 04/15/25 23:07 B-Type Natriuretic Peptide 1636.26 pg/mL (0-100) LFT Test 04/16/25 06:11 Alanine Aminotransferase (ALT) 968 U/L (7-40) H Alkaline Phosphatase 120 U/L (46-116) H Aspartate Amino Transferase (AST) 2286 U/L (13-40) H Total Bilirubin 3.1 mg/dL (0.2-1.0) H HgA1c, TSH Test 04/16/25 06:11 Hemoglobin A1c 5.9 % A1C (<5.7) H Thyroid Stimulating Hormone (TSH) 3.65 uIU/mL (0.55-4.78) Urinalysis Test 04/16/25 01:45 Urine Color Light-yellow (Yellow) Urine Clarity Clear (Clear) Urine pH 6.0 (5.0-9.0) Urine Specific [place] 1.007 (1.001-1.035) Urine Protein Negative (Negative) Urine Ketones Negative (Negative) Urine Blood Negative /uL (Negative) Urine Nitrite Negative (Negative) Urine Bilirubin Negative (Negative) Urine Urobilinogen Normal mg/dL (Negative) Urine Leukocyte Esterase Negative /uL (Negative) Urine RBC None seen /hpf (0 - 4) Urine Microscopic WBC 1 /HPF (0-5) Urine Squamous Epithelial Cells Few /hpf (<5) Urine Amorphous Crystals Few /hpf (None Seen) Urine Bacteria None seen /hpf (None Seen) Urine Hyaline Casts Few /lpf (0 - 2) Urine Glucose Normal mg/dL (Normal) Blood Gas Results Test 04/15/25 23:38 Arterial Blood pH 7.423 (7.350-7.450) FiO2 % 45.0 Labs and/or images reviewed: Labs reviewed by me, Image(s) reviewed by me Assessment/Plan Assessment/Plan NSTEMI: cardiology consult appreciated Rule out structural heart disease, echocardiogram pending Rule out pulmonary embolism Acute hypoxic respiratory failure Hypertension Dyslipidemia Transaminitis Elevated D-dimer 9.0 DVT ruled out V/Q scan pending Hyperkalemia, resolved Acute kidney injury Methamphetamine abuse: Counseled Morbidly obese Medication noncompliance Time spent 70 minutes Advanced care planning time 20 minutes Patient is full code Plan discussed with: Patient Date of Service: April 16, 2025 Billing Provider: SAWYER SINGLETARY MD Common Visit Codes: [id number] CARE 30-74 MIN SAWYER SINGLETARY MD April 16, 2025 14:51
--- NOTE | 2025-04-16 15:04 | DVH ---
EXAM: US BILAT LOWER DVT Clinical History: bilateral lower extremity edema Comparison: None Technique: Duplex Doppler evaluation of the deep venous systems of both lower extremities from the co mmon femoral veins to the popliteal veins including color Doppler and spectral/pulsed waveform analys is was performed. Findings: RIGHT SIDE: The common femoral vein demonstrates appropriate compressibility and waveform variability. There is compressibility/patency of the great saphenous vein at the proximal thigh. The femoral vein demonstrates appropriate compressibility and waveform variability. The deep femoral vein demonstrates appropriate compressibility and waveform variability. The popliteal vein demonstrates appropriate compressibility and waveform variability. There is color flow at the tibioperoneal trunk and in the posterior tibial vein. Large monge's cyst in the popliteal fossa measuring 6.3 x 1.3 cm. LEFT SIDE: The common femoral vein demonstrates appropriate compressibility and waveform variability. The left c ommon femoral vein is dilated measuring 2 cm in caliber compared to 1 cm on the right side. There is compressibility/patency of the great saphenous vein at the proximal thigh. The femoral vein demonstrates appropriate compressibility and waveform variability. The deep femoral vein demonstrates appropriate compressibility and waveform variability. The popliteal vein demonstrates appropriate compressibility and waveform variability. There is color flow at the tibioperoneal trunk and in the posterior tibial vein. Impression: 1. No right or left femoropopliteal venous thrombosis. 2. Focally dilated left common femoral vein with no evidence of DVT. 3. Large right Monge's cyst.
--- NOTE | 2025-04-16 17:59 | DVHSR ---
APPROVED REPORT EXAM: Two-dimensional and M-mode echocardiogram with Doppler and color Doppler. Blood Pressure: 126/77 mmHg INDICATION CHF exacerbation, unspecified RISK FACTORS Height: 64, Weight: 189 DIMENSIONS LVDd3.8 (3.8-5.7cm)LA (2D) (1.9-4.0cm)Aortic Root3.2 (2.0-3.7cm) LVDs2.2 (2.5-4.0cm)LA (MM) (1.9-4.0cm)Aortic Cusp Exc1.5 (1.5-2.0cm) EF (%) 74.0 (55-70%)Rt. Atrium7.6 (1.9-4.0cm)Asc. 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
[2025-04-16] MEDS: ENOXAPARIN SOD 80 MG/0.8ML SYRINGE SC SCH (21:27)
[2025-04-16] MEDS ORDERED: ATORVASTATIN 20 MG TAB PO SCH (22:00)
[2025-04-17] VITALS (11 sets, daily range): BP systolic 95–132; BP diastolic 51–88; PULSE 57–71; RESP 17–18; TEMP 97.7–98.7; O2SAT 89–100
[2025-04-17 07:02] LABS: Basophils # (auto) 0 10 ^3/uL (0-0.2); Basophils % (auto) 0.9 % (0.0-2.0); Eosinophils # (auto) 0.2 10 ^3/uL (0-0.8); Eosinophils % (auto) 3.5 % (0.0-7.0); Hematocrit 35.7 % (36.0-46.0); Lymphocytes % (auto) 21.2 % (10.0-50.0); Mean Corpuscular Hemoglobin 33.2 pg (28.0-32.0); Mean Corpuscular Hgb Conc. 33.5 g/dL (32.0-36.0); Mean Corpuscular Volume 99.1 fL (80.0-100.0); Monocytes # (auto) 0.2 10 ^3/uL (0-1.3); Monocytes % (auto) 4.5 % (0.0-12.0); Neutrophils # (auto) 3.3 10 ^3/uL (1.6-8.6); Neutrophils % (auto) 69.9 % (37.0-80.0); Nucleated Red Blood Cells % 0.5 %; Platelet Count (auto) 127 10^3/uL (140-450); Red Cell Distribution Width 17.5 % (11.8-14.3); White Blood Cell 4.7 10^3/uL (4.4-10.8)
[2025-04-17 07:21] LABS: Alanine Aminotransferase 972 U/L (7-40); Albumin 3.8 g/dL (3.2-4.8); Alkaline Phosphatase 123 U/L (46-116); Anion Gap 8 (5-15); BUN/Creatinine Ratio 19.5 (10.0-20.0); Blood Urea Nitrogen 31 mg/dL (9-23); Carbon Dioxide 27 mmol/L (20-31); Chloride 102 mmol/L (98-107); Glucose 80 mg/dL (74-106); Potassium 3.7 mmol/L (3.5-5.1); Sodium 137 mmol/L (136-145)
[2025-04-17 07:22] LABS: Total Protein 6.1 g/dL (5.7-8.2)
[2025-04-17 07:33] LABS: Aspartate Aminotransferase 1420 U/L (13-40)
--- NOTE | 2025-04-17 10:45 | DVHPN2 ---
Reviewed: Care Plan, H&P, Labs, Medications, Previous Orders, Radiology Changes from previous H/P or p: No Changes Eyes: No Pain, No Vision change, No Conjunctivae inflammation, No Eyelid inflammation, No Other, No Redness ENT: No Ear pain, No Ear discharge, No Nose pain, No Nose discharge, No Nose congestion, No Mouth pain, No Mouth swelling, No Throat pain, No Throat swelling, No Other Cardiovascular: No Chest Pain, No Palpitations, No Orthopnea, No Paroxysmal Noc. Dyspnea, No Edema, No Lt Headedness, No Other Respiratory: No Cough, No Dry; Shortness of breath; No SOB with excertion; W heezing; No Hemoptysis, No Pleuritic Pain, No Sputum; Other (SOB at rest) Gastrointestinal: No Nausea, No Vomiting, No Abdominal Pain, No Diarrhea, No Constipation, No Melena, No Hematochezia, No Other Genitourinary: No Dysuria, No Frequency, No Incontinence, No Hematuria, No Retention, No Other Musculoskeletal: No other, No neck pain, No shoulder pain, No arm pain, No back pain, No hand pain, No leg pain, No foot pain Skin: No Rash, No Lesions, No Jaundice, No Bruising, No Other Objective Vitals Vital Signs Date Time Temp Pulse Resp B/P (MAP) Pulse Ox O2 Delivery O2 Flow Rate FiO2 04/17/25 10:18 95 Nasal Cannula 3.0 04/17/25 10:18 32 04/17/25 09:27 63 132/88 04/17/25 09:00 98.0 18 98.0 Intake/Output Intake and Output 04/17/25 07:00 Intake Total 580 ml Output Total 2750 ml Balance -2170 ml Intake Oral 580 ml Output Urine Total 2750 ml # Bowel Movements 1 Medications Current Medications Medications Dose Ordered Sig/Fuad Route Start Time Stop Time Status Last Admin Dose Admin Carvedilol 3.125 mg Q12HR PO 04/16/25 10:00 04/17/25 09:27 3.125 MG Aspirin 81 mg DAILY PO 04/16/25 10:00 04/17/25 09:27 81 MG Sodium Chloride 10 ml Q8HR IV 04/16/25 06:00 04/17/25 05:28 10 ML Acetaminophen/ Hydrocodone Bitart 1 tab Q4HP PRN PO 04/16/25 01:30 04/16/25 11:56 1 TAB Ondansetron HCl 4 mg Q4HP PRN IV 04/16/25 01:30 Docusate Sodium 100 mg BIDPRN PRN PO 04/16/25 01:30 Acetaminophen 650 mg Q6HP PRN PO 04/16/25 01:30 Nitroglycerin 0.4 mg Q5MINP PRN SL 04/16/25 02:00 Morphine Sulfate 2 mg Q30M PRN IV 04/16/25 02:00 Furosemide 40 mg BIDD IV 04/16/25 18:00 04/17/25 05:28 40 MG Enoxaparin Sodium 80 mg Q12HR SC 04/16/25 22:00 04/17/25 09:28 80 MG Laboratory Results Laboratory Tests 04/17/25 06:41 Chemistry Test 04/17/25 06:41 Albumin 3.8 g/dL (3.2-4.8) Calcium Level 10.0 mg/dL (8.7-10.4) Total Protein 6.1 g/dL (5.7-8.2) LFT Test 04/17/25 06:41 Alanine Aminotransferase (ALT) 972 U/L (7-40) H Alkaline Phosphatase 123 U/L (46-116) H Aspartate Amino Transferase (AST) 1420 U/L (13-40) H Total Bilirubin 2.0 mg/dL (0.2-1.0) H Urinalysis Test 04/16/25 01:45 Urine Color Light-yellow (Yellow) Urine Clarity Clear (Clear) Urine pH 6.0 (5.0-9.0) Urine Specific [place] 1.007 (1.001-1.035) Urine Protein Negative (Negative) Urine Ketones Negative (Negative) Urine Blood Negative /uL (Negative) Urine Nitrite Negative (Negative) Urine Bilirubin Negative (Negative) Urine Urobilinogen Normal mg/dL (Negative) Urine Leukocyte Esterase Negative /uL (Negative) Urine RBC None seen /hpf (0 - 4) Urine Microscopic WBC 1 /HPF (0-5) Urine Squamous Epithelial Cells Few /hpf (<5) Urine Amorphous Crystals Few /hpf (None Seen) Urine Bacteria None seen /hpf (None Seen) Urine Hyaline Casts Few /lpf (0 - 2) Urine Glucose Normal mg/dL (Normal) Labs and/or images reviewed: Labs reviewed by me, Image(s) reviewed by me Assessment/Plan Assessment/Plan NSTEMI: cardiology consult appreciated Rule out structural heart disease, Echo Findings: lvef 40% 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 severe RV dilatation, severe dysfunction severe tricuspid regurg severe pulm htn Acute hypoxic respiratory failure Hypertension Dyslipidemia Transaminitis Elevated D-dimer 9.0 DVT ruled out V/Q scan pending, start therapeutic Lovenox Hyperkalemia, resolved Acute kidney injury Methamphetamine abuse: Counseled Morbidly obese Medication noncompliance Time spent 70 minutes Advanced care planning time 20 minutes Patient is full code Plan discussed with: Patient My Orders Orders - SAWYER SINGLETARY MD Procedure Category Date Status Time Nm Vq Scan NM 04/16/25 Logged 14:49 Date of Service: April 17, 2025 Billing Provider: SAWYER SINGLETARY MD Common Visit Codes: [id number] CARE 30-74 MIN SAWYER SINGLETARY MD April 17, 2025 10:44
--- NOTE | 2025-04-17 14:51 | DVHPN2 ---
Progress Note Date Seen: April 17, 2025 Medical Necessity Reason Pt with a Central, PICC or Fol: No Subjective Other Systems: on lovenox vq scan pending Objective vital signs Vital Sign Date Time Temp Pulse Resp B/P (MAP) Pulse Ox O2 Delivery O2 Flow Rate FiO2 04/17/25 12:32 98.0 71 18 112/65 (81) 93 98.0 04/17/25 10:18 Nasal Cannula 3.0 04/17/25 10:18 32 Total Intake and Output 04/16/25 04/16/25 04/17/25 15:00 23:00 07:00 Intake Total 0 ml 580 ml Output Total 825 ml 1925 ml Balance -825 ml -1345 ml medications Current Medications Medications Dose Ordered Sig/Fuad Route Start Time Stop Time Status Last Admin Dose Admin Carvedilol 3.125 mg Q12HR PO 04/16/25 10:00 04/17/25 09:27 3.125 MG Aspirin 81 mg DAILY PO 04/16/25 10:00 04/17/25 09:27 81 MG Sodium Chloride 10 ml Q8HR IV 04/16/25 06:00 04/17/25 05:28 10 ML Acetaminophen/ Hydrocodone Bitart 1 tab Q4HP PRN PO 04/16/25 01:30 04/16/25 11:56 1 TAB Ondansetron HCl 4 mg Q4HP PRN IV 04/16/25 01:30 Docusate Sodium 100 mg BIDPRN PRN PO 04/16/25 01:30 Acetaminophen 650 mg Q6HP PRN PO 04/16/25 01:30 Nitroglycerin 0.4 mg Q5MINP PRN SL 04/16/25 02:00 Morphine Sulfate 2 mg Q30M PRN IV 04/16/25 02:00 Furosemide 40 mg BIDD IV 04/16/25 18:00 04/17/25 05:28 40 MG Enoxaparin Sodium 80 mg Q12HR SC 04/16/25 22:00 04/17/25 09:28 80 MG Examination: GENERAL:Abnormal, HEENT:Abnormal, LUNGS:Abnormal, CVS:Abnormal, ABDOMEN:Abnormal laboratory and microbiology Laboratory Tests 04/17/25 06:41 Test 04/17/25 06:41 Range/Units Serum Glucose 80 74-106 mg/dL Problem List/Assessment/Plan Problem List/Assessment/Plan meth abuse 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
[2025-04-18] VITALS (9 sets, daily range): BP systolic 104–134; BP diastolic 60–83; PULSE 56–75; RESP 16–18; TEMP 97.5–98.1; O2SAT 92–100
[2025-04-18 06:44] LABS: Basophils # (auto) 0 10 ^3/uL (0-0.2); Basophils % (auto) 0.9 % (0.0-2.0); Eosinophils # (auto) 0.2 10 ^3/uL (0-0.8); Eosinophils % (auto) 4.8 % (0.0-7.0); Hematocrit 35.6 % (36.0-46.0); Hemoglobin 12.2 g/dL (12.2-16.2); Lymphocytes % (auto) 24.5 % (10.0-50.0); Mean Corpuscular Hemoglobin 33.6 pg (28.0-32.0); Mean Corpuscular Hgb Conc. 34.3 g/dL (32.0-36.0); Mean Corpuscular Volume 98.1 fL (80.0-100.0); Monocytes # (auto) 0.2 10 ^3/uL (0-1.3); Monocytes % (auto) 5.8 % (0.0-12.0); Neutrophils # (auto) 2.7 10 ^3/uL (1.6-8.6); Nucleated Red Blood Cells % 0.5 %; Platelet Count (auto) 132 10^3/uL (140-450); Red Blood Cells 3.63 10^6/uL (4.0-5.20); Red Cell Distribution Width 17.5 % (11.8-14.3); White Blood Cell 4.2 10^3/uL (4.4-10.8)
[2025-04-18 06:56] LABS: Alanine Aminotransferase 832 U/L (7-40); Albumin 3.6 g/dL (3.2-4.8); Alkaline Phosphatase 121 U/L (46-116); Anion Gap 7 (5-15); Aspartate Aminotransferase 701 U/L (13-40); BUN/Creatinine Ratio 24.1 (10.0-20.0); Blood Urea Nitrogen 26 mg/dL (9-23); Calcium 9.3 mg/dL (8.7-10.4); Carbon Dioxide 28 mmol/L (20-31); Chloride 101 mmol/L (98-107); Glucose 94 mg/dL (74-106); Potassium 3.5 mmol/L (3.5-5.1); Sodium 136 mmol/L (136-145); Total Protein 5.8 g/dL (5.7-8.2)
[2025-04-18 06:58] LABS: Bilirubin, Total 2.3 mg/dL (0.2-1.0)
[2025-04-18] MEDS: DOCUSATE SOD 100 MG CAP PO PRN (09:13)
--- NOTE | 2025-04-18 10:25 | DVHPN2 ---
Progress Note Date Seen: Apr 18, 2025 Medical Necessity Reason Pt with a Central, PICC or Fol: No Subjective Other Systems: diuresed well Objective vital signs Vital Sign Date Time Temp Pulse Resp B/P (MAP) Pulse Ox O2 Delivery O2 Flow Rate FiO2 04/18/25 09:53 99 Nasal Cannula* 3 32 04/18/25 09:11 75 134/78 04/18/25 09:00 97.6 18 97.6 Total Intake and Output 04/17/25 04/17/25 04/18/25 15:00 23:00 07:00 Intake Total 420 ml 205 ml Output Total 2150 ml 600 ml Balance -1730 ml -395 ml medications Current Medications Medications Dose Ordered Sig/Fuad Route Start Time Stop Time Status Last Admin Dose Admin Carvedilol 3.125 mg Q12HR PO 04/16/25 10:00 04/18/25 09:11 3.125 MG Aspirin 81 mg DAILY PO 04/16/25 10:00 04/18/25 09:10 81 MG Sodium Chloride 10 ml Q8HR IV 04/16/25 06:00 04/18/25 05:42 10 ML Acetaminophen/ Hydrocodone Bitart 1 tab Q4HP PRN PO 04/16/25 01:30 04/16/25 11:56 1 TAB Ondansetron HCl 4 mg Q4HP PRN IV 04/16/25 01:30 Docusate Sodium 100 mg BIDPRN PRN PO 04/16/25 01:30 04/18/25 09:13 100 MG Acetaminophen 650 mg Q6HP PRN PO 04/16/25 01:30 Nitroglycerin 0.4 mg Q5MINP PRN SL 04/16/25 02:00 Morphine Sulfate 2 mg Q30M PRN IV 04/16/25 02:00 Furosemide 40 mg BIDD IV 04/16/25 18:00 04/18/25 05:41 40 MG Enoxaparin Sodium 80 mg Q12HR SC 04/16/25 22:00 04/18/25 09:11 80 MG Examination: GENERAL:Abnormal, HEENT:Abnormal, LUNGS:Abnormal, CVS:Abnormal, ABDOMEN:Abnormal laboratory and microbiology Laboratory Tests 04/18/25 06:09 Test 04/18/25 06:09 Range/Units Serum Glucose 94 74-106 mg/dL Problem List/Assessment/Plan Problem List/Assessment/Plan meth abuse 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
--- NOTE | 2025-04-18 11:45 | DVHPN2 ---
Reviewed: Care Plan, H&P, Labs, Medications, Previous Orders, Radiology Changes from previous H/P or p: No Changes Eyes: No Pain, No Vision change, No Conjunctivae inflammation, No Eyelid inflammation, No Other, No Redness ENT: No Ear pain, No Ear discharge, No Nose pain, No Nose discharge, No Nose congestion, No Mouth pain, No Mouth swelling, No Throat pain, No Throat swelling, No Other Cardiovascular: No Chest Pain, No Palpitations, No Orthopnea, No Paroxysmal Noc. Dyspnea, No Edema, No Lt Headedness, No Other Respiratory: No Cough, No Dry; Shortness of breath; No SOB with excertion; W heezing; No Hemoptysis, No Pleuritic Pain, No Sputum; Other (SOB at rest) Gastrointestinal: No Nausea, No Vomiting, No Abdominal Pain, No Diarrhea, No Constipation, No Melena, No Hematochezia, No Other Genitourinary: No Dysuria, No Frequency, No Incontinence, No Hematuria, No Retention, No Other Musculoskeletal: No other, No neck pain, No shoulder pain, No arm pain, No back pain, No hand pain, No leg pain, No foot pain Skin: No Rash, No Lesions, No Jaundice, No Bruising, No Other Objective Vitals Vital Signs Date Time Temp Pulse Resp B/P (MAP) Pulse Ox O2 Delivery O2 Flow Rate FiO2 04/18/25 09:53 99 Nasal Cannula* 3 32 04/18/25 09:11 75 134/78 04/18/25 09:00 97.6 18 97.6 Intake/Output Intake and Output 04/18/25 07:00 Intake Total 625 ml Output Total 2750 ml Balance -2125 ml Intake Oral 625 ml Output Urine Total 2750 ml Medications Current Medications Medications Dose Ordered Sig/Fuad Route Start Time Stop Time Status Last Admin Dose Admin Carvedilol 3.125 mg Q12HR PO 04/16/25 10:00 04/18/25 09:11 3.125 MG Aspirin 81 mg DAILY PO 04/16/25 10:00 04/18/25 09:10 81 MG Sodium Chloride 10 ml Q8HR IV 04/16/25 06:00 04/18/25 05:42 10 ML Acetaminophen/ Hydrocodone Bitart 1 tab Q4HP PRN PO 04/16/25 01:30 04/16/25 11:56 1 TAB Ondansetron HCl 4 mg Q4HP PRN IV 04/16/25 01:30 Docusate Sodium 100 mg BIDPRN PRN PO 04/16/25 01:30 04/18/25 09:13 100 MG Acetaminophen 650 mg Q6HP PRN PO 04/16/25 01:30 Nitroglycerin 0.4 mg Q5MINP PRN SL 04/16/25 02:00 Morphine Sulfate 2 mg Q30M PRN IV 04/16/25 02:00 Furosemide 40 mg BIDD IV 04/16/25 18:00 04/18/25 05:41 40 MG Enoxaparin Sodium 80 mg Q12HR SC 04/16/25 22:00 04/18/25 09:11 80 MG Laboratory Results Laboratory Tests 04/18/25 06:09 Chemistry Test 04/18/25 06:09 Albumin 3.6 g/dL (3.2-4.8) Calcium Level 9.3 mg/dL (8.7-10.4) Total Protein 5.8 g/dL (5.7-8.2) LFT Test 04/18/25 06:09 Alanine Aminotransferase (ALT) 832 U/L (7-40) H Alkaline Phosphatase 121 U/L (46-116) H Aspartate Amino Transferase (AST) 701 U/L (13-40) H Total Bilirubin 2.3 mg/dL (0.2-1.0) H Urinalysis Test 04/16/25 01:45 Urine Color Light-yellow (Yellow) Urine Clarity Clear (Clear) Urine pH 6.0 (5.0-9.0) Urine Specific [place] 1.007 (1.001-1.035) Urine Protein Negative (Negative) Urine Ketones Negative (Negative) Urine Blood Negative /uL (Negative) Urine Nitrite Negative (Negative) Urine Bilirubin Negative (Negative) Urine Urobilinogen Normal mg/dL (Negative) Urine Leukocyte Esterase Negative /uL (Negative) Urine RBC None seen /hpf (0 - 4) Urine Microscopic WBC 1 /HPF (0-5) Urine Squamous Epithelial Cells Few /hpf (<5) Urine Amorphous Crystals Few /hpf (None Seen) Urine Bacteria None seen /hpf (None Seen) Urine Hyaline Casts Few /lpf (0 - 2) Urine Glucose Normal mg/dL (Normal) Labs and/or images reviewed: Labs reviewed by me, Image(s) reviewed by me Assessment/Plan Assessment/Plan NSTEMI: cardiology consult appreciated Rule out structural heart disease, Echo Findings: Ejection fraction 40% 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 severe RV dilatation, Severe pulmonary hypertension severe tricuspid regurg Acute hypoxic respiratory failure Hypertension Dyslipidemia Elevated liver function tests: Hepatitis panel gallbladder ultrasound CT abdomen pelvis without contrast, consult for GI Dr. Jaimes Elevated D-dimer 9.5 DVT ruled out V/Q scan pending, start therapeutic Lovenox Hyperkalemia, resolved Acute kidney injury Methamphetamine abuse: Counseled Morbidly obese Medication noncompliance Time spent 70 minutes Advanced care planning time 20 minutes Patient is full code Patient and her daughter Suzi moved to [facility] recently from [facility], Suzi [phone] at bedside Plan discussed with: Patient My Orders Orders - SAWYER SINGLETARY MD Procedure Category Date Status Time Comprehensive LAB 04/18/25 In Process Hepatitis Panel 11:25 Gallbladder US 04/18/25 Logged 11:25 Ct Ab Pel Wo Con-No CT 04/18/25 Logged Oral Or Iv 11:25 Date of Service: Apr 18, 2025 Billing Provider: SAWYER SINGLETARY MD Common Visit Codes: [id number] CARE 30-74 MIN SAWYER SINGLETARY MD Apr 18, 2025 11:45
--- NOTE | 2025-04-18 16:10 | DVH ---
Exam: CT CT AB PEL WO CON-NO ORAL OR IV History: Elevated liver function tests Comparison Study: None TECHNIQUE: Multidetector CT of the abdomen was performed from lung bases to pubic symphysis. Imaging was performed without IV contrast. Axial, coronal and sagittal multiplanar reformats were obtained fr om the axial data set by the technologist. Radiation Dose Information: CT Dose: CTDI volume is 18.33 mGy. Dose-length product is 1005.86 mGy*cm FINDINGS: Evaluation of solid organs is limited due to lack of intravenous contrast use. Findings: Lung Bases: No acute or significant lung base finding. Normal heart size. No pleural or pericardial effusion. Liver: The liver is normal in size. No focal lesions. Gallbladder and Biliary Tree: Mild thickening of the gallbladder wall recommend gallbladder ultrasoun d for further evaluation Spleen: Unremarkable Pancreas: The pancreas is grossly normal in appearance. Adrenal Glands: Unremarkable Kidneys: Questionable 7 8 mm calculus in the right proximal ureter correlate clinically Bladder: Naranjo catheter in the bladder Bowel: The stomach is grossly normal in appearance. Small bowel and colon are normal in caliber and d istribution. The appendix is not visualized; however, no secondary findings of acute appendicitis id entified. Ascites: Absent Lymphadenopathy: No mesenteric, retroperitoneal or periportal lymphadenopathy. Abdominal Wall and Mesentery: Unremarkable. Vasculature: The visualized abdominal aorta is normal in size and caliber. Evaluation of abdominal a nd pelvic vessels is limited due to lack of intravenous contrast. Pelvic Organs: Unremarkable Musculoskeletal: No aggressive focal bony lesions, acute fractures or dislocation. Soft tissues: Unremarkable IMPRESSION: 1. Possible 7 8 mm calculus proximal right ureter. Correlate clinically. 2. Naranjo catheter in the bladder. Radiation optimization: All CT scans at this facility use at least one of these dose optimization te chniques: automated exposure control mA and/or kV adjustment per patient size (includes targeted exa ms where dose is matched to clinical indication) or iterative reconstruction.
--- NOTE | 2025-04-18 16:36 | DVH ---
INDICATION: Elevated liver function tests TECHNIQUE: Multiple real-time sonographic images were obtained of the right upper quadrant. COMPARISON: CT abdomen/ pelvis 04/18/2025 FINDINGS: The liver demonstrates homogenous echotexture. The liver measures 15.3 cm. There is partial visualiza tion of a hyperechoic structure within the liver measuring up to about 1.7 cm (series 2, image 34). O n same-day CT there appears to be a correlating hypodense liver lesion. There is no intrahepatic or extrahepatic ductal dilatation. The common duct measures 0.3 cm. The gallbladder is minimally distended. The gallbladder wall measures 0.5 cm. Small hyperechoic foci in the gallbladder wall measuring up to 4 mm with possible associated comet tail artifact (series 2, image 49). No evidence of cholelithiasis. Negative sonographic mathias's sign. No evidence of perich olecystic fluid. The right kidney measures 11.6 cm. The right kidney is normal in contour, size, and shape. The echo genicity is normal. There is no hydronephrosis. The visualized pancreas appears unremarkable. IMPRESSION: 1. Moderate gallbladder wall thickening. There is no evidence of cholelithiasis, pericholecystic flui d, and there was a negative sonographic mathias's sign. Isolated gallbladder wall thickening is nonspe cific and may be seen with gallbladder contraction, fluid overload, liver disease, or gallbladder inf lammation. There are also small echogenic foci which are suggestive of gallbladder adenomyomatosis. 2. Indeterminate hyperechoic liver lesion. Consider further evaluation with a multiphasic CT or MRI.
[2025-04-19] VITALS (9 sets, daily range): BP systolic 106–118; BP diastolic 67–80; PULSE 50–69; RESP 16–18; TEMP 96.8–98.2; O2SAT 92–98
--- NOTE | 2025-04-19 11:16 | DVH ---
EXAM: NM NM VQ SCAN HISTORY: r/o PULMONARY EMBOLISM COMPARISON: None TECHNIQUE: 3.8 mCi of Tc99m MAA were utilized for the perfusion portion of the study. 2.7 mCi of xenon 133 were utilized for the ventilation portion of the study. FINDINGS: Ventilation and perfusion images show no large mismatched defect. IMPRESSION: 1. Low probability pulmonary embolism.
[2025-04-19 11:39] LABS: Hepatitis B Core Total AB Negative (Negative)
[2025-04-19 12:48] LABS: Hepatitis A Total Antibody Negative (Negative); Hepatitis B Surface Antibody Negative (Negative)
[2025-04-19 12:49] LABS: Hepatitis B Surface Antigen Negative (Negative); Hepatitis C Antibody Negative (Negative)
--- NOTE | 2025-04-19 13:31 | DVHPN2 ---
Reviewed: Care Plan, H&P, Labs, Medications, Previous Orders, Radiology Changes from previous H/P or p: No Changes Eyes: No Pain, No Vision change, No Conjunctivae inflammation, No Eyelid inflammation, No Other, No Redness ENT: No Ear pain, No Ear discharge, No Nose pain, No Nose discharge, No Nose congestion, No Mouth pain, No Mouth swelling, No Throat pain, No Throat swelling, No Other Cardiovascular: No Chest Pain, No Palpitations, No Orthopnea, No Paroxysmal Noc. Dyspnea, No Edema, No Lt Headedness, No Other Respiratory: No Cough, No Dry; Shortness of breath; No SOB with excertion; W heezing; No Hemoptysis, No Pleuritic Pain, No Sputum; Other (SOB at rest) Gastrointestinal: No Nausea, No Vomiting, No Abdominal Pain, No Diarrhea, No Constipation, No Melena, No Hematochezia, No Other Genitourinary: No Dysuria, No Frequency, No Incontinence, No Hematuria, No Retention, No Other Musculoskeletal: No other, No neck pain, No shoulder pain, No arm pain, No back pain, No hand pain, No leg pain, No foot pain Skin: No Rash, No Lesions, No Jaundice, No Bruising, No Other Objective Vitals Vital Signs Date Time Temp Pulse Resp B/P (MAP) Pulse Ox O2 Delivery O2 Flow Rate FiO2 04/19/25 11:29 Nasal Cannula* 2 28 04/19/25 10:00 92 04/19/25 09:44 68 118/78 04/19/25 09:00 97.0 17 97.0 Intake/Output Intake and Output 04/19/25 07:00 Intake Total 750 ml Output Total 4100 ml Balance -3350 ml Intake Oral 750 ml Output Urine Total 4100 ml Medications Current Medications Medications Dose Ordered Sig/Fuad Route Start Time Stop Time Status Last Admin Dose Admin Carvedilol 3.125 mg Q12HR PO 04/16/25 10:00 04/19/25 09:44 3.125 MG Aspirin 81 mg DAILY PO 04/16/25 10:00 04/19/25 09:43 81 MG Sodium Chloride 10 ml Q8HR IV 04/16/25 06:00 04/19/25 05:41 10 ML Acetaminophen/ Hydrocodone Bitart 1 tab Q4HP PRN PO 04/16/25 01:30 04/16/25 11:56 1 TAB Ondansetron HCl 4 mg Q4HP PRN IV 04/16/25 01:30 Docusate Sodium 100 mg BIDPRN PRN PO 04/16/25 01:30 04/18/25 09:13 100 MG Acetaminophen 650 mg Q6HP PRN PO 04/16/25 01:30 Nitroglycerin 0.4 mg Q5MINP PRN SL 04/16/25 02:00 Morphine Sulfate 2 mg Q30M PRN IV 04/16/25 02:00 Furosemide 40 mg BIDD IV 04/16/25 18:00 04/19/25 05:42 40 MG Enoxaparin Sodium 80 mg Q12HR SC 04/16/25 22:00 04/19/25 09:43 80 MG Laboratory Results Laboratory Tests 04/18/25 06:09 Urinalysis Test 04/16/25 01:45 Urine Color Light-yellow (Yellow) Urine Clarity Clear (Clear) Urine pH 6.0 (5.0-9.0) Urine Specific [place] 1.007 (1.001-1.035) Urine Protein Negative (Negative) Urine Ketones Negative (Negative) Urine Blood Negative /uL (Negative) Urine Nitrite Negative (Negative) Urine Bilirubin Negative (Negative) Urine Urobilinogen Normal mg/dL (Negative) Urine Leukocyte Esterase Negative /uL (Negative) Urine RBC None seen /hpf (0 - 4) Urine Microscopic WBC 1 /HPF (0-5) Urine Squamous Epithelial Cells Few /hpf (<5) Urine Amorphous Crystals Few /hpf (None Seen) Urine Bacteria None seen /hpf (None Seen) Urine Hyaline Casts Few /lpf (0 - 2) Urine Glucose Normal mg/dL (Normal) Labs and/or images reviewed: Labs reviewed by me, Image(s) reviewed by me Assessment/Plan Assessment/Plan NSTEMI: cardiology consult appreciated Rule out structural heart disease, Echo Findings: Ejection fraction 40% 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 severe RV dilatation, Severe pulmonary hypertension severe tricuspid regurg Acute hypoxic respiratory failure Hypertension Dyslipidemia Elevated liver function tests: Hepatitis panel gallbladder ultrasound shows no gallstones , consult for GI Dr. Jaimes Elevated D-dimer 9.5 DVT ruled out 7 mm right paroxysmal ureteral calculus: Consult for urologist PE ruled out discontinue heparin Hyperkalemia, resolved Acute kidney injury Methamphetamine abuse: Counseled Morbidly obese Medication noncompliance Time spent 70 minutes Advanced care planning time 20 minutes Patient is full code Patient and her daughter Suzi moved to [facility] recently from [facility], Suzi [phone] at bedside Plan discussed with: Patient Date of Service: Apr 19, 2025 Billing Provider: SAWYRE SINGLETARY MD Common Visit Codes: [id number] INP/OBS CARE([facility]) SAWYER SINGLETARY MD Apr 19, 2025 13:31
--- NOTE | 2025-04-19 15:32 | DVHINCON2 ---
Date of service: Apr 19, 2025 Referring Physician Arthur Reason for Consultation ureteral stone History of Present Illness History Source: RN Notes, MD Notes Exam Limitations: No limitations HPI This is a 69-year-old female patient who presents to the emergency room with chief complaint of worsening shortness of breath for two days prior to emergency room arrival. C Significant past medical history includes congestive heart failure, hypertension, dyslipidemia, COPD, obesity, and tobacco use. The patient reports that she recently moved to this area from [place] approximately three weeks ago. The patient admits to medication noncompliance, stating that she has not taken her heart failure medications including Lasix for the last couple of days. Of note, the patient's toxicology is positive for amphetamine use for which the patient adamantly denies. Urology consulted for incidental finding on CT of "possible right ureteral stone". There is no hydro nephrosis and renal function is normal now. Home Meds Discontinued Reported Medications Citalopram Hydrobromide (Celexa) 10 Mg Tab 11/16/10 Past Medical History Patient Family History: Cardiovascular disease G8 MOTHER Hypertension G8 FATHER Ischemic heart disease G8 MOTHER Kidney stones G8 FATHER Review of Systems Pulmonary/Respiratory: Dyspnea H&P Exam Vital Signs Vital Signs Date Time Temp Pulse Resp B/P (MAP) Pulse Ox O2 Delivery O2 Flow Rate FiO2 04/19/25 13:00 97.0 60 17 106/67 (80) 95 97.0 04/19/25 11:29 Nasal Cannula* 2 28 General Appeara: Well developed, Well nourished, Normal Appearance Appearance: Appropriate appearance, Appropriate insight Skin Exam: Normal inspection, Normal color, Warm/dry Labs/Xrays [place] [address] Ph: [phone] DIAGNOSTIC IMAGING Diagnostic Imaging Report : [id number] Signed PATIENT: NEELAM GARCIA ACCT: [id number] UNIT: [id number] : 1955 [facility] AGE / SEX: 69 / F ADM STATUS: ADM IN SERVICE 1526 ORDERING PHYSICIAN: GARO DAVILA NP PROCEDURE(s): ABPEL - CT AB PELVIS W WO CON-IV ONLY REASON: ureteral calculus ORDER NUMBER(s): [id number], ACCESSION NUMBER(s): [id number] Exam: CT CT AB PELVIS W WO CON-IV ONLY History: ureteral calculus Comparison Study: 04/18/2025 Technique: Multidetector spiral CT of the abdomen and pelvis was performed from lung bases to pubic symphysis. Initial imaging was done without IV contrast, followed by post contrast images of the abdomen and pelvis. Intravenous contrast was administered during this examination. portal venous/arterial/multiphase imaging was obtained. Axial, coronal and sagittal multiplanar reformats were performed by the technologist on a separate workstation. Radiation Dose : CT Dose: CTDI volume is 9.48 mGy. Dose-length product is 1467.38 mGy*cm Findings: Lung Bases: No acute or significant lung base finding. Normal heart size. No pleural or pericardial effusion. Liver: The liver is normal in size. No focal lesions. Normal hepatic vascular enhancement. Gallbladder and Biliary Tree: Unremarkable Spleen: Unremarkable Pancreas: The pancreas is normal in appearance without focal lesions or abnormal enhancement. Adrenal Glands: Unremarkable Kidneys: Kidneys demonstrate normal symmetric enhancement without focal lesions, or hydronephrosis. 1 mm calculus lower pole of the left kidney. There are no stones in the ureters and there is no ureteral dilatation. Bladder: There is a Naranjo catheter within the urinary bladder. La of the bladder are slightly thickened. No stones seen within the bladder. Bowel: The stomach is grossly normal in appearance. Small bowel and colon are normal in caliber and distribution. Sigmoid diverticulosis without signs of diverticulitis. Ascites: Absent Lymphadenopathy: No mesenteric, retroperitoneal or periportal lymphadenopathy. Small calcified right iliopsoas node is present. Abdominal Wall and Mesentery: Small pockets of air are seen in the subcutaneous tissues overlying the right lower quadrant of the abdomen anteriorly Vasculature: The visualized abdominal aorta is normal in size and caliber. Abdominal and pelvic vessels demonstrate normal enhancement. Pelvic Organs: Unremarkable Musculoskeletal: No aggressive focal bony lesions, acute fractures or dislocation. IMPRESSION: 1. There is a tiny 1 mm nonobstructive calculus lower pole of the left kidney. 2. No ureteral calculi or hydronephrosis present 3. No stone seen in the urinary bladder. A Naranjo catheter is present within the urinary bladder. There is air in the urinary bladder presumably introduced at the time of catheterization. 4. Sigmoid Diverticulosis is present. Radiation optimization: All CT scans at this facility use at least one of these dose optimization techniques: automated exposure control mA and/or kV adjustment per patient size (includes targeted exams where dose is matched to clinical indication) or iterative reconstruction. ATED BY: RAJESH BRODY MD DICTATED DATE/TIME: 04/19/251647 SIGNED BY: RAJESH BRODY MD SIGNED DATE/TIME: 04/19/251647 CC: [place] [address] Ph: [phone] DIAGNOSTIC IMAGING Diagnostic Imaging Report : [id number] Signed PATIENT: NEELAM GARCIA ACCT: [id number] UNIT: [id number] : 1955 LOC: [facility] ROOM / BED: 0294T / A AGE / SEX: 69 / F ADM STATUS: ADM IN SERVICE 24 ORDERING PHYSICIAN: SAWYER SINGLETARY MD PROCEDURE(s): ABPL - CT AB PEL WO CON-NO ORAL OR IV REASON: Elevated liver function tests ORDER NUMBER(s): [id number], ACCESSION NUMBER(s): [id number] Exam: CT CT AB PEL WO CON-NO ORAL OR IV History: Elevated liver function tests Comparison Study: None TECHNIQUE: Multidetector CT of the abdomen was performed from lung bases to pubic symphysis. Imaging was performed without IV contrast. Axial, coronal and sagittal multiplanar reformats were obtained from the axial data set by the technologist. Radiation Dose Information: CT Dose: CTDI volume is 18.33 mGy. Dose-length product is 1005.86 mGy*cm FINDINGS: Evaluation of solid organs is limited due to lack of intravenous contrast use. Findings: Lung Bases: No acute or significant lung base finding. Normal heart size. No pleural or pericardial effusion. Liver: The liver is normal in size. No focal lesions. Gallbladder and Biliary Tree: Mild thickening of the gallbladder wall recommend gallbladder ultrasound for further evaluation Spleen: Unremarkable Pancreas: The pancreas is grossly normal in appearance. Adrenal Glands: Unremarkable Kidneys: Questionable 7 8 mm calculus in the right proximal ureter correlate clinically Bladder: Naranjo catheter in the bladder Bowel: The stomach is grossly normal in appearance. Small bowel and colon are normal in caliber and distribution. The appendix is not visualized; however, no secondary findings of acute appendicitis identified. Ascites: Absent Lymphadenopathy: No mesenteric, retroperitoneal or periportal lymphadenopathy. Abdominal Wall and Mesentery: Unremarkable. Vasculature: The visualized abdominal aorta is normal in size and caliber. Evaluation of abdominal and pelvic vessels is limited due to lack of intravenous contrast. Pelvic Organs: Unremarkable Musculoskeletal: No aggressive focal bony lesions, acute fractures or dislocation. Soft tissues: Unremarkable IMPRESSION: 1. Possible 7 8 mm calculus proximal right ureter. Correlate clinically. 2. Naranjo catheter in the bladder. Radiation optimization: All CT scans at this facility use at least one of these dose optimization techniques: automated exposure control mA and/or kV adjustment per patient size (includes targeted exams where dose is matched to clinical indication) or iterative reconstruction. ATED BY: RAJESH RAGLAND Jr., DO DICTATED DATE/TIME: 04/18/25 1607 SIGNED BY: RAJESH RAGLAND Jr., SIGNED DATE/TIME: 04/18/25 1607 CC: Labs Test 04/18/25 06:09 04/16/25 16:42 04/16/25 10:42 04/16/25 06:11 Range/Units White Blood Count 4.2 L 4.4-10.8 10^3/uL Red Blood Count 3.63 L 4.0-5.20 10^6/uL Hemoglobin 12.2 12.2-16.2 g/dL Hematocrit 35.6 L 36.0-46.0 % Mean Corpuscular Volume 98.1 80.0-100.0 fL Mean Corpuscular Hemoglobin 33.6 H 28.0-32.0 pg Mean Corpuscular Hemoglobin Concent 34.3 32.0-36.0 g/dL Red Cell Distribution Width 17.5 H 11.8-14.3 % Platelet Count 132 L 140-450 10^3/uL Mean Platelet Volume 9.8 6.9-10.8 fL Neutrophils (%) (Auto) 64.0 37.0-80.0 % Lymphocytes (%) (Auto) 24.5 10.0-50.0 % Monocytes (%) (Auto) 5.8 0.0-12.0 % Eosinophils (%) (Auto) 4.8 0.0-7.0 % Basophils (%) (Auto) 0.9 0.0-2.0 % Neutrophils # (Auto) 2.7 1.6-8.6 10 ^3/uL Lymphocytes # (Auto) 1.0 0.4-5.4 10 ^3/uL Monocytes # (Auto) 0.2 0-1.3 10 ^3/uL Eosinophils # (Auto) 0.2 0-0.8 10 ^3/uL Basophils # (Auto) 0 0-0.2 10 ^3/uL Nucleated Red Blood Cells 0.5 % Sodium Level 136 136-145 mmol/L Potassium Level 3.5 3.5-5.1 mmol/L Chloride Level 101 98-107 mmol/L Carbon Dioxide Level 28 20-31 mmol/L Anion Gap 7 5-15 Blood Urea Nitrogen 26 H 9-23 mg/dL Creatinine 1.08 #H 0.550-1.02 mg/dL Glomerular Filtration Rate Calc 55 >90 mL/min BUN/Creatinine Ratio 24.1 H 10.0-20.0 Serum Glucose 94 74-106 mg/dL Calcium Level 9.3 8.7-10.4 mg/dL Total Bilirubin 2.3 H 0.2-1.0 mg/dL Aspartate Amino Transferase (AST) 701 H 13-40 U/L Alanine Aminotransferase (ALT) 832 H 7-40 U/L Alkaline Phosphatase 121 H 46-116 U/L Total Protein 5.8 5.7-8.2 g/dL Albumin 3.6 3.2-4.8 g/dL Hepatitis A Antibody Total Negative Negative Hepatitis B Surface Antigen Negative Negative Hepatitis B Surface Antibody Negative Negative Hepatitis B Core Total Antibody Negative Negative Hepatitis C Antibody Negative Negative POC Glucose 75 70-106 mg/dl Troponin I High Sensitivity 660 *H </=34 ng/L D-Dimer, Quantitative 8.95 H 0.0-0.49 mg/L FEU Hemoglobin A1c 5.9 H <5.7 % A1C Triglycerides Level 70 < 150 mg/dL Cholesterol Level 111 < 200 mg/dL LDL Cholesterol 36 < 100 mg/dL HDL Cholesterol 53 40-59 mg/dL Thyroid Stimulating Hormone (TSH) 3.65 0.55-4.78 uIU/mL Test 04/16/25 01:45 04/16/25 01:39 04/15/25 23:38 04/15/25 23:07 Range/Units Urine Color Light-yellow Yellow Urine Clarity Clear Clear Urine pH 6.0 5.0-9.0 Urine Specific [place] 1.007 1.001-1.035 Urine Protein Negative Negative Urine Ketones Negative Negative Urine Blood Negative Negative /uL Urine Nitrite Negative Negative Urine Bilirubin Negative Negative Urine Urobilinogen Normal Negative mg/dL Urine Leukocyte Esterase Negative Negative /uL Urine RBC None seen 0 - 4 /hpf Urine Microscopic WBC 1 0-5 /HPF Urine Squamous Epithelial Cells Few <5 /hpf Urine Amorphous Crystals Few None Seen /hpf Urine Bacteria None seen None Seen /hpf Urine Hyaline Casts Few 0 - 2 /lpf Urine Glucose Normal Normal mg/dL Urine Opiates Screen Neg NEGATIVE Urine Fentanyl Screen Neg NEGATIVE Urine Barbiturates Screen Neg NEGATIVE Urine Phencyclidine Screen Neg NEGATIVE Urine Amphetamines Screen Pos NEGATIVE Urine Benzodiazepines Screen Neg NEGATIVE Urine Cocaine Screen Neg NEGATIVE Urine Cannabinoids Screen Neg NEGATIVE Phosphorus Level 4.9 2.4-5.1 mg/dL Magnesium Level 2.0 1.6-2.6 mg/dL Blood Gas Specimen Type Arterial Blood Gas Sample Site Left radial Blood Gas Patient Temperature 37.0 Arterial Blood Date Drawn [id number] Arterial Blood pH 7.423 7.350-7.450 Arterial Blood Partial Pressure CO2 22.1 L 32.0-45.0 mmHg Arterial Blood Partial Pressure O2 104.8 83.0-108.0 mmHg Arterial Blood HCO3 14.1 L 21.0-28.0 mmol/L Arterial Blood Oxygen Saturation 97.4 94.0-98.0 % Arterial Blood Base Excess -8.2 L -2.0-3.0 mmol/L Arterial Blood Oxyhemoglobin 96.0 94.0-98.0 % Arterial Blood Carboxyhemoglobin 0.8 0.5-1.5 % Arterial Blood Methemoglobin 0.6 0.0-1.5 % Gianni Test Yes Blood Gas Total Hemoglobin 13.50 12.0-16.0 g/dL Blood Gas Modality Mask - bipap FiO2 % 45.0 Blood Gas EPAP 5 Blood Gas IPAP 12 B-Type Natriuretic Peptide 1636.26 0-100 pg/mL Assessment/Plan Problem List: (1) Acute on chronic heart failure with reduced ejection fraction (HFrEF, <= 40%) and combined systolic and diastolic dysfunction (2) Acute respiratory failure with hypoxia (3) Ureteral stone Plan CT urogram = negative cleared from urology standpoint Plan discussed with: Patient, Other GARO DAVILA NP Apr 19, 2025 15:32
[2025-04-19] MEDS ORDERED: IOHEXOL 300 MG/ML 100ML BOTTLE IJ ONE (16:01)
--- NOTE | 2025-04-19 16:50 | DVH ---
Exam: CT CT AB PELVIS W WO CON-IV ONLY History: ureteral calculus Comparison Study: 04/18/2025 Technique: Multidetector spiral CT of the abdomen and pelvis was performed from lung bases to pubic s ymphysis. Initial imaging was done without IV contrast, followed by post contrast images of the abdom en and pelvis. Intravenous contrast was administered during this examination. portal venous/arterial/ multiphase imaging was obtained. Axial, coronal and sagittal multiplanar reformats were performed by the technologist on a separate workstation. Radiation Dose : CT Dose: CTDI volume is 9.48 mGy. Dose-length product is 1467.38 mGy*cm Findings: Lung Bases: No acute or significant lung base finding. Normal heart size. No pleural or pericardial effusion. Liver: The liver is normal in size. No focal lesions. Normal hepatic vascular enhancement. Gallbladder and Biliary Tree: Unremarkable Spleen: Unremarkable Pancreas: The pancreas is normal in appearance without focal lesions or abnormal enhancement. Adrenal Glands: Unremarkable Kidneys: Kidneys demonstrate normal symmetric enhancement without focal lesions, or hydronephrosis. 1 mm calculus lower pole of the left kidney. There are no stones in the ureters and there is no ureter al dilatation. Bladder: There is a Naranjo catheter within the urinary bladder. La of the bladder are slightly thic kened. No stones seen within the bladder. Bowel: The stomach is grossly normal in appearance. Small bowel and colon are normal in caliber and d istribution. Sigmoid diverticulosis without signs of diverticulitis. Ascites: Absent Lymphadenopathy: No mesenteric, retroperitoneal or periportal lymphadenopathy. Small calcified right iliopsoas node is present. Abdominal Wall and Mesentery: Small pockets of air are seen in the subcutaneous tissues overlying the right lower quadrant of the abdomen anteriorly Vasculature: The visualized abdominal aorta is normal in size and caliber. Abdominal and pelvic vess els demonstrate normal enhancement. Pelvic Organs: Unremarkable Musculoskeletal: No aggressive focal bony lesions, acute fractures or dislocation. IMPRESSION: 1. There is a tiny 1 mm nonobstructive calculus lower pole of the left kidney. 2. No ureteral calculi or hydronephrosis present 3. No stone seen in the urinary bladder. A Naranjo catheter is present within the urinary bladder. The re is air in the urinary bladder presumably introduced at the time of catheterization. 4. Sigmoid Diverticulosis is present. Radiation optimization: All CT scans at this facility use at least one of these dose optimization sol hniques: automated exposure control mA and/or kV adjustment per patient size (includes targeted exam s where dose is matched to clinical indication) or iterative reconstruction.
[2025-04-20] VITALS (8 sets, daily range): BP systolic 106–139; BP diastolic 67–83; PULSE 57–75; RESP 16–18; TEMP 36.4; O2SAT 89–96
[2025-04-20 06:59] LABS: Albumin 4.2 g/dL (3.2-4.8); Anion Gap 9 (5-15); BUN/Creatinine Ratio 21.3 (10.0-20.0); Blood Urea Nitrogen 19 mg/dL (9-23); Calcium 9.3 mg/dL (8.7-10.4); Carbon Dioxide 29 mmol/L (20-31); Glucose 90 mg/dL (74-106); Total Protein 6.7 g/dL (5.7-8.2)
[2025-04-20 07:01] LABS: Basophils # (auto) 0 10 ^3/uL (0-0.2); Basophils % (auto) 0.5 % (0.0-2.0); Eosinophils # (auto) 0.2 10 ^3/uL (0-0.8); Eosinophils % (auto) 3.9 % (0.0-7.0); Hematocrit 42.1 % (36.0-46.0); Hemoglobin 14.3 g/dL (12.2-16.2); Lymphocytes # (auto) 0.8 10 ^3/uL (0.4-5.4); Lymphocytes % (auto) 15.1 % (10.0-50.0); Mean Corpuscular Hemoglobin 33.2 pg (28.0-32.0); Mean Corpuscular Hgb Conc. 33.9 g/dL (32.0-36.0); Mean Corpuscular Volume 97.8 fL (80.0-100.0); Monocytes # (auto) 0.3 10 ^3/uL (0-1.3); Monocytes % (auto) 6.4 % (0.0-12.0); Neutrophils # (auto) 3.9 10 ^3/uL (1.6-8.6); Neutrophils % (auto) 74.1 % (37.0-80.0); Nucleated Red Blood Cells % 0.2 %; Platelet Count (auto) 162 10^3/uL (140-450); Red Blood Cells 4.31 10^6/uL (4.0-5.20); Red Cell Distribution Width 17.4 % (11.8-14.3); White Blood Cell 5.3 10^3/uL (4.4-10.8)
[2025-04-20 07:13] LABS: Alanine Aminotransferase 559 U/L (7-40); Alkaline Phosphatase 137 U/L (46-116); Aspartate Aminotransferase 285 U/L (13-40); Bilirubin, Total 2.7 mg/dL (0.2-1.0); Chloride 96 mmol/L (98-107); Potassium 3.3 mmol/L (3.5-5.1); Sodium 134 mmol/L (136-145)
--- NOTE | 2025-04-20 12:53 | DVHPN2 ---
Reviewed: Care Plan, H&P, Labs, Medications, Previous Orders, Radiology Changes from previous H/P or p: No Changes Eyes: No Pain, No Vision change, No Conjunctivae inflammation, No Eyelid inflammation, No Other, No Redness ENT: No Ear pain, No Ear discharge, No Nose pain, No Nose discharge, No Nose congestion, No Mouth pain, No Mouth swelling, No Throat pain, No Throat swelling, No Other Cardiovascular: No Chest Pain, No Palpitations, No Orthopnea, No Paroxysmal Noc. Dyspnea, No Edema, No Lt Headedness, No Other Respiratory: No Cough, No Dry; Shortness of breath; No SOB with excertion; W heezing; No Hemoptysis, No Pleuritic Pain, No Sputum; Other (SOB at rest) Gastrointestinal: No Nausea, No Vomiting, No Abdominal Pain, No Diarrhea, No Constipation, No Melena, No Hematochezia, No Other Genitourinary: No Dysuria, No Frequency, No Incontinence, No Hematuria, No Retention, No Other Musculoskeletal: No other, No neck pain, No shoulder pain, No arm pain, No back pain, No hand pain, No leg pain, No foot pain Skin: No Rash, No Lesions, No Jaundice, No Bruising, No Other Objective Vitals Vital Signs Date Time Temp Pulse Resp B/P (MAP) Pulse Ox O2 Delivery O2 Flow Rate FiO2 04/20/25 10:16 69 122/83 04/20/25 10:00 96 Room Air* 0 21 04/20/25 09:00 97.0 16 97.0 Intake/Output Intake and Output 04/20/25 07:00 Intake Total 1278 ml Output Total 2130 ml Balance -852 ml Intake Oral 1278 ml Output Urine Total 2130 ml # Bowel Movements 1 Medications Current Medications Medications Dose Ordered Sig/Fuad Route Start Time Stop Time Status Last Admin Dose Admin Carvedilol 3.125 mg Q12HR PO 04/16/25 10:00 04/20/25 10:16 3.125 MG Aspirin 81 mg DAILY PO 04/16/25 10:00 04/20/25 10:19 81 MG Sodium Chloride 10 ml Q8HR IV 04/16/25 06:00 04/20/25 05:49 10 ML Acetaminophen/ Hydrocodone Bitart 1 tab Q4HP PRN PO 04/16/25 01:30 04/16/25 11:56 1 TAB Ondansetron HCl 4 mg Q4HP PRN IV 04/16/25 01:30 Docusate Sodium 100 mg BIDPRN PRN PO 04/16/25 01:30 04/18/25 09:13 100 MG Acetaminophen 650 mg Q6HP PRN PO 04/16/25 01:30 Nitroglycerin 0.4 mg Q5MINP PRN SL 04/16/25 02:00 Morphine Sulfate 2 mg Q30M PRN IV 04/16/25 02:00 Furosemide 40 mg BIDD IV 04/16/25 18:00 04/20/25 05:49 40 MG Laboratory Results Laboratory Tests 04/20/25 06:11 Chemistry Test 04/20/25 06:11 Albumin 4.2 g/dL (3.2-4.8) Calcium Level 9.3 mg/dL (8.7-10.4) Total Protein 6.7 g/dL (5.7-8.2) LFT Test 04/20/25 06:11 Alanine Aminotransferase (ALT) 559 U/L (7-40) H Alkaline Phosphatase 137 U/L (46-116) H Aspartate Amino Transferase (AST) 285 U/L (13-40) H Total Bilirubin 2.7 mg/dL (0.2-1.0) H Urinalysis Test 04/16/25 01:45 Urine Color Light-yellow (Yellow) Urine Clarity Clear (Clear) Urine pH 6.0 (5.0-9.0) Urine Specific [place] 1.007 (1.001-1.035) Urine Protein Negative (Negative) Urine Ketones Negative (Negative) Urine Blood Negative /uL (Negative) Urine Nitrite Negative (Negative) Urine Bilirubin Negative (Negative) Urine Urobilinogen Normal mg/dL (Negative) Urine Leukocyte Esterase Negative /uL (Negative) Urine RBC None seen /hpf (0 - 4) Urine Microscopic WBC 1 /HPF (0-5) Urine Squamous Epithelial Cells Few /hpf (<5) Urine Amorphous Crystals Few /hpf (None Seen) Urine Bacteria None seen /hpf (None Seen) Urine Hyaline Casts Few /lpf (0 - 2) Urine Glucose Normal mg/dL (Normal) Labs and/or images reviewed: Labs reviewed by me, Image(s) reviewed by me Assessment/Plan Assessment/Plan Non STEMI Severe pulmonary hypertension Severe tricuspid regurgitation Acute hypoxic respiratory failure Hypertension Hypercholesterolemia MILAGROS Elevated liver function tests Methamphetamine abuse Elevated D-dimer DVT ruled out PE ruled out Morbid obesity Noncompliance Grand daughter Josiane [phone] bedside and discussed with the patient and agreeable [facility] Plan discussed with: Patient My Orders Orders - SAWYER SINGLETARY MD Procedure Category Date Status Time Pt Request For Service PT 04/19/25 Logged 13:31 * Urology Consult CONS 04/19/25 Transmitted 16:30 Date of Service: Apr 20, 2025 Billing Provider: SAWYER SINGLETARY MD Common Visit Codes: [id number] INP/OBS CARE(HIGH) SAWYER SINGLETARY MD Apr 20, 2025 12:53
--- NOTE | 2025-04-20 13:05 | DVHDS2 ---
Discharge Summary Date of Admission April 16, 2025 at 01:50 Date of Discharge: Apr 20, 2025 Admitting Diagnosis Shortness of breath Wounds: None Labs/Diagnostic Data: Laboratory Results Test 04/20/25 06:11 04/18/25 06:09 04/16/25 16:42 04/16/25 10:42 White Blood Count 5.3 10^3/uL (4.4-10.8) Red Blood Count 4.31 10^6/uL (4.0-5.20) Hemoglobin 14.3 g/dL (12.2-16.2) Hematocrit 42.1 % (36.0-46.0) Mean Corpuscular Volume 97.8 fL (80.0-100.0) Mean Corpuscular Hemoglobin 33.2 pg (28.0-32.0) Mean Corpuscular Hemoglobin Concent 33.9 g/dL (32.0-36.0) Red Cell Distribution Width 17.4 % (11.8-14.3) Platelet Count 162 10^3/uL (140-450) Mean Platelet Volume 9.2 fL (6.9-10.8) Neutrophils (%) (Auto) 74.1 % (37.0-80.0) Lymphocytes (%) (Auto) 15.1 % (10.0-50.0) Monocytes (%) (Auto) 6.4 % (0.0-12.0) Eosinophils (%) (Auto) 3.9 % (0.0-7.0) Basophils (%) (Auto) 0.5 % (0.0-2.0) Neutrophils # (Auto) 3.9 10 ^3/uL (1.6-8.6) Lymphocytes # (Auto) 0.8 10 ^3/uL (0.4-5.4) Monocytes # (Auto) 0.3 10 ^3/uL (0-1.3) Eosinophils # (Auto) 0.2 10 ^3/uL (0-0.8) Basophils # (Auto) 0 10 ^3/uL (0-0.2) Nucleated Red Blood Cells 0.2 % Sodium Level 134 mmol/L (136-145) Potassium Level 3.3 mmol/L (3.5-5.1) Chloride Level 96 mmol/L (98-107) Carbon Dioxide Level 29 mmol/L (20-31) Anion Gap 9 (5-15) Blood Urea Nitrogen 19 mg/dL (9-23) Creatinine 0.89 mg/dL (0.550-1.02) Glomerular Filtration Rate Calc 69 mL/min (>90) BUN/Creatinine Ratio 21.3 (10.0-20.0) Serum Glucose 90 mg/dL (74-106) Calcium Level 9.3 mg/dL (8.7-10.4) Total Bilirubin 2.7 mg/dL (0.2-1.0) Aspartate Amino Transferase (AST) 285 U/L (13-40) Alanine Aminotransferase (ALT) 559 U/L (7-40) Alkaline Phosphatase 137 U/L (46-116) Total Protein 6.7 g/dL (5.7-8.2) Albumin 4.2 g/dL (3.2-4.8) Hepatitis A Antibody Total Negative (Negative) Hepatitis B Surface Antigen Negative (Negative) Hepatitis B Surface Antibody Negative (Negative) Hepatitis B Core Total Antibody Negative (Negative) Hepatitis C Antibody Negative (Negative) POC Glucose 75 mg/dl (70-106) Troponin I High Sensitivity 660 ng/L (</=34) Test 04/16/25 06:11 04/16/25 01:45 04/16/25 01:39 04/15/25 23:38 D-Dimer, Quantitative 8.95 mg/L FEU (0.0-0.49) Hemoglobin A1c 5.9 % A1C (<5.7) Triglycerides Level 70 mg/dL (< 150) Cholesterol Level 111 mg/dL (< 200) LDL Cholesterol 36 mg/dL (< 100) HDL Cholesterol 53 mg/dL (40-59) Thyroid Stimulating Hormone (TSH) 3.65 uIU/mL (0.55-4.78) Urine Color Light-yellow (Yellow) Urine Clarity Clear (Clear) Urine pH 6.0 (5.0-9.0) Urine Specific [place] 1.007 (1.001-1.035) Urine Protein Negative (Negative) Urine Ketones Negative (Negative) Urine Blood Negative /uL (Negative) Urine Nitrite Negative (Negative) Urine Bilirubin Negative (Negative) Urine Urobilinogen Normal mg/dL (Negative) Urine Leukocyte Esterase Negative /uL (Negative) Urine RBC None seen /hpf (0 - 4) Urine Microscopic WBC 1 /HPF (0-5) Urine Squamous Epithelial Cells Few /hpf (<5) Urine Amorphous Crystals Few /hpf (None Seen) Urine Bacteria None seen /hpf (None Seen) Urine Hyaline Casts Few /lpf (0 - 2) Urine Glucose Normal mg/dL (Normal) Urine Opiates Screen Neg (NEGATIVE) Urine Fentanyl Screen Neg (NEGATIVE) Urine Barbiturates Screen Neg (NEGATIVE) Urine Phencyclidine Screen Neg (NEGATIVE) Urine Amphetamines Screen Pos (NEGATIVE) Urine Benzodiazepines Screen Neg (NEGATIVE) Urine Cocaine Screen Neg (NEGATIVE) Urine Cannabinoids Screen Neg (NEGATIVE) Phosphorus Level 4.9 mg/dL (2.4-5.1) Magnesium Level 2.0 mg/dL (1.6-2.6) Blood Gas Specimen Type Arterial Blood Gas Sample Site Left radial Blood Gas Patient Temperature 37.0 Arterial Blood Date Drawn [id number] Arterial Blood pH 7.423 (7.350-7.450) Arterial Blood Partial Pressure CO2 22.1 mmHg (32.0-45.0) Arterial Blood Partial Pressure O2 104.8 mmHg (83.0-108.0) Arterial Blood HCO3 14.1 mmol/L (21.0-28.0) Arterial Blood Oxygen Saturation 97.4 % (94.0-98.0) Arterial Blood Base Excess -8.2 mmol/L (-2.0-3.0) Arterial Blood Oxyhemoglobin 96.0 % (94.0-98.0) Arterial Blood Carboxyhemoglobin 0.8 % (0.5-1.5) Arterial Blood Methemoglobin 0.6 % (0.0-1.5) Gianni Test Yes Blood Gas Total Hemoglobin 13.50 g/dL (12.0-16.0) Blood Gas Modality Mask - bipap FiO2 % 45.0 Blood Gas EPAP 5 Blood Gas IPAP 12 Test 04/15/25 23:07 B-Type Natriuretic Peptide 1636.26 pg/mL (0-100) Other Laboratory Tests 04/20/25 06:11 Brief Hx & Hospital Course: 49-year-old female with a history of chronic respiratory failure on home oxygen hypertension hypercholesterolemia chronic meth abuse recently moved from [place] burden by family and admitted for shortness of breaths found to have non ST- elevation IA. 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 Patient also has severe pulmonary hypertension tricuspid regurgitation. 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 Patient being discharged to halfway facility for rehab as patient is noncompliant and requires medication management and physical therapy Patient's granddaughter Josiane who is also DONOR RELATIONS ASSOCIATE is at the bedside. Generalized Condition poor but stable at the time of discharge. Consults/Reason for consult Urology Cardiology Nephrology Operations or Procedures Echocardiogram CT abdomen pelvis without contrast Condition at Discharge: Fair Final Diagnosis/Problems List Non STEMI Severe pulmonary hypertension Severe tricuspid regurgitation Acute hypoxic respiratory failure Hypertension Hypercholesterolemia MILAGROS Elevated liver function tests Methamphetamine abuse Elevated D-dimer DVT ruled out PE ruled out Morbid obesity Noncompliance Discharge Disposition: Longterm Facility Discharge Instruct/Medications Diet: Cardiac 2g Na,low cholest Activity: Light activity Follow Up/Referral: Follow up with the long-term Medications: see list 39 (Time Taken for Discharge summary 39 minutes) Discharge Statement: "Patient was advised to return to the ER or call 911 if any headaches, dizziness, shortness of breath, chest pain, abdominal pain, bleeding, fevers, or worsening of medical condition. Patient was counseled about treatment plan, medications, possible side effects, patientverbalized understanding. All questions were answered to the best of my ability. This discharge took greater then 30 minutes in planning, reviewing documentation, counseling the patient, and discussing with other team members." ASSESSMENT ASSESSMENT Hospital Course Marginally improved Assessment Non STEMI Severe pulmonary hypertension Severe tricuspid regurgitation Acute hypoxic respiratory failure Hypertension Hypercholesterolemia MILAGROS Elevated liver function tests Methamphetamine abuse Elevated D-dimer DVT ruled out PE ruled out Morbid obesity Noncompliance Date of Service: Apr 20, 2025 Billing Provider: SAWYER SINGLETARY MD Common Visit Codes: 29271-LWI/OBS DISCH DAY >30min SAWYER SINGLETARY MD Apr 20, 2025 13:05
[2025-04-20 16:46] LABS: COVID19 ANTIGEN SOFIA FIA NEGATIVE (NEGATIVE)
== END 2025-04-20 19:00 | DRG 280 ==
LOC: EDBD 22:28 → ER 22:28 → OVERFLOW 04-16 01:50 → TELE-WESTW 04-16 15:49
PROVIDERS: ADMIT Family Medicine; ATTEND Family Medicine
PROC: 5A09357 Assistance with Respiratory Ventilation, Less than 24 Consecutive Hours, Continuous Positive Airway Pressure (ICD-10-PCS; principal; 2025-04-15)
PROC: 5A09357 Assistance with Respiratory Ventilation, Less than 24 Consecutive Hours, Continuous Positive Airway Pressure (ICD-10-PCS; 2025-04-16)
DX: I21.4 Non-ST elevation (NSTEMI) myocardial infarction (principal); I50.43 Acute on chronic combined systolic (congestive) and diastolic (congestive) heart failure; J96.21 Acute and chronic respiratory failure with hypoxia; N17.9 Acute kidney failure, unspecified; N20.1 Calculus of ureter; I13.0 Hypertensive heart and chronic kidney disease with heart failure and stage 1 through stage 4 chronic kidney disease, or unspecified chronic kidney disease; E66.01 Morbid (severe) obesity due to excess calories; Z20.822 Contact with and (suspected) exposure to COVID-19; E87.5 Hyperkalemia; F15.10 Other stimulant abuse, uncomplicated; I27.20 Pulmonary hypertension, unspecified; E78.00 Pure hypercholesterolemia, unspecified; N18.9 Chronic kidney disease, unspecified; J44.9 Chronic obstructive pulmonary disease, unspecified; R74.01 Elevation of levels of liver transaminase levels; I36.1 Nonrheumatic tricuspid (valve) insufficiency; F17.210 Nicotine dependence, cigarettes, uncomplicated; Z91.148 Patient's other noncompliance with medication regimen for other reason; Z68.30 Body mass index [BMI] 30.0-30.9, adult; Z82.3 Family history of stroke; Z82.49 Family history of ischemic heart disease and other diseases of the circulatory system; Z71.51 Drug abuse counseling and surveillance of drug abuser; Z87.442 Personal history of urinary calculi; Z99.81 Dependence on supplemental oxygen
CPT/HCPCS: 36415; 36600; 71045; 74176; 74178; 76705; 78582; 80048; 80053; 80061; 80307; 81001; 82805; 82962; 83036; 83735; 83880; 84100; 84443; 84484; 85025; 85379; 86704; 86706; 86708; 86803; 87340; 87426; 93005; 93306; 93970; 94660; 97110; 97116; 97163; 99291; G0378; J1815